=== PATIENT | female | born 1990 | race African-American/Black ===

== ENCOUNTER 2022-07-25 08:54 | Emergency (ER) | payer BC, SELFPAY ==
--- NOTE | 2022-07-25 08:56 | ED.URI ---
HPI - URI/Sore Throat General Chief Complaint: Upper Respiratory Infection Stated Complaint: SOB; productive cough; fever Time Seen by Provider: 07/25/22 09:12 Source: patient and RN notes reviewed Mode of arrival: ambulatory Limitations: no limitations History of Present Illness HPI Narrative: 32 old female presents concern for cough, headache, chest congestion, sore throat, shortness of breath upon exertion that started 3 days ago. Reports she has taken Cassie E[place] elicited complaint: cough and sore throat Related Data Home Medications Medication Instructions Recorded Confirmed cholecalciferol (vitamin D3) 50 50 mcg PO DAILY 07/25/22 07/25/22 mcg (2,000 unit) capsule meloxicam 15 mg tablet 15 mg PO DAILY 07/25/22 07/25/22 metformin 500 mg tablet 500 mg PO BID 07/25/22 07/25/22 Allergies Allergy/AdvReac Type Severity Reaction Status Date / Time megestrol Allergy Severe Dyspnea / Verified 07/25/22 09:29 SOB oxycodone Allergy Severe THROAT Verified 07/25/22 09:06 SWELLING latex Allergy Mild Rash Verified 07/25/22 09:29 Review of Systems Review of Systems: CONSTITUTIONAL: Denies malaise, chills, sweats, or fever. EYES: Denies visual changes, redness, or discharge. ENT: Reports rhinorrhea, congestion, sinus pain, otalgia. Reports sore throat. CARDIOVASCULAR: Denies chest pain, palpitations, or edema. RESPIRATORY: Reports cough, chest congestion, dyspnea. GASTROINTESTINAL: Denies abdominal pain, nausea, vomiting, diarrhea SKIN: Denies rash or itching. MUSCULOSKELETAL: Denies myalgia. NEUROLOGIC:. Reports headache. All systems reviewed & are unremarkable except as noted in HPI and below PMFSH Comments At time of signature, agree with nursing past medical, surgical, social and family history. There is no relevant family history pertinent to the presenting complaint Exam Narrative: GENERAL: Well-appearing, well-nourished, and in no acute distress. HEAD: Normocephalic EYES: PERRLA, conjunctivae clear ENT: Nares clear, turbinates edematous and erythematous. Mucous membranes moist. TM pearly rodarte with dull light reflex bilaterally; no tragal tenderness. Oropharynx not erythematous without lesions. Tonsils not enlarged and without exudate, no drooling, no hoarseness, no trismus, uvula midline. NECK: Supple. No lymphadenopathy CHEST scattered wheeze, otherwise Clear to auscultation, breath sounds equal. No wheezing, rhonchi, rales, or stridor. No respiratory distress, speaks in full sentences. HEART: Regular rate and rhythm. No murmur heard. SKIN: Warm, dry, no rash. NEURO: Alert and oriented x3. PSYCH: Normal mood and affect Course Course Emergency Course: Patient is aware of diagnosis, understands and agrees to treatment plan. Anticipatory guidance given. Patient agrees to follow-up as directed and is aware of reasons to seek care at the emergency department. Portions of this record may have been created with voice recognition software Level of Care: Express Care Visit Vital Signs Vital signs: Vital Signs Temperature 98.4 F 07/25/22 09:14 Pulse Rate 89 07/25/22 09:14 Respiratory Rate 16 07/25/22 09:14 Blood Pressure 130/77 07/25/22 09:14 Pulse Oximetry 98 07/25/22 09:14 Oxygen Delivery Room Air 07/25/22 09:14 Temperature 98.4 F 07/25/22 09:14 Pulse Rate 89 07/25/22 09:14 Respiratory Rate 16 07/25/22 09:14 Blood Pressure 130/77 07/25/22 09:14 Pulse Oximetry 98 07/25/22 09:14 Oxygen Delivery Room Air 07/25/22 09:14 Reviewed. MDM - URI/Sore Throat MDM Narrative Medical decision making narrative: Differential diagnosis considered: Mauro virus, strep pharyngitis, allergic rhinitis, upper respiratory tract infection, sinusitis, rhinosinusitis, nasopharyngitis. viral pharyngitis, otitis media, otitis externa, pneumonia, bronchitis, viral cough syndrome, viral syndrome, and influenza. Exam findings show no acute concerns or changes; patient is non-
[2022-07-25 09:14] VITALS: BP 130/77; PULSE 89; RESP 16; TEMP 36.9; O2SAT 98
== END 2022-07-25 09:40 | disposition home or self-care (01) ==
PROVIDERS: Emergency Provider Nurse Practitioner
DX: J40 Bronchitis, not specified as acute or chronic (principal); Z20.822 Contact with and (suspected) exposure to COVID-19; R73.03 Prediabetes
CPT/HCPCS: 87081; 87426; 87804; 87880; 99213; C9803; G0463

== ENCOUNTER 2022-08-04 20:21 | Emergency (ER) | payer BC, SELFPAY ==
--- NOTE | ~2022-08-04 | XR_ITS ---
EXAMINATION: XR chest 1V portable DATE: 08/04/2022 21:00 INDICATION: Cough. TECHNIQUE: A single frontal view of the chest was obtained. COMPARISON: Chest 2 views 05/26/2017 FINDINGS: There is no pneumonia, pleural effusion, or pneumothorax. The heart is normal. IMPRESSION: 1. No acute cardiopulmonary disease. Reviewed, dictated and finalized at location E.
[2022-08-04 20:24] VITALS: BP 156/95; PULSE 91; RESP 20; TEMP 36.4; O2SAT 100
--- NOTE | 2022-08-04 20:49 | ED.GENADULT ---
HPI - General Adult General Chief complaint: Upper Respiratory Infection Stated complaint: cough Time Seen by Provider: 08/04/22 20:27 Source: patient Mode of arrival: ambulatory Limitations: no limitations History of Present Illness HPI narrative: This is a 32-year-old female who presents to the ED with chief complaint of cough and URI symptoms x3 weeks. Patient states that she was seen in urgent care and given a steroid pack and albuterol. She feels like the albuterol helps but is presenting today as she just does not feel better. Reports that she still has a productive cough with yellow/green sputum. Reports postnasal drainage, sinus pressure and congestion, ear fullness. Denies fevers, chills, chest pain, abdominal pain, vomiting, urinary problems, leg swelling. Related Data Home Medications Medication Instructions Recorded Confirmed cholecalciferol (vitamin D3) 50 50 mcg PO DAILY 07/25/22 07/25/22 mcg (2,000 unit) capsule meloxicam 15 mg tablet 15 mg PO DAILY 07/25/22 07/25/22 metformin 500 mg tablet 500 mg PO BID 07/25/22 07/25/22 Allergies Allergy/AdvReac Type Severity Reaction Status Date / Time megestrol Allergy Severe Dyspnea / Verified 08/04/22 20:22 SOB oxycodone Allergy Severe THROAT Verified 08/04/22 20:22 SWELLING latex Allergy Mild Rash Verified 08/04/22 20:22 Review of Systems Review of Systems: CONSTITUTIONAL: Denies fever, chills, or sweats. EYES: Denies visual changes, redness, or discharge. ENT: See HPI CARDIOVASCULAR: Denies chest pain, palpitations, or edema. RESPIRATORY: Denies cough or dyspnea. GASTROINTESTINAL: Denies abdominal pain, nausea, vomiting, or diarrhea. GENITOURINARY: Denies dysuria or hematuria. SKIN: Denies rash or itching. MUSCULOSKELETAL: Denies back pain, joint pain, or myalgia. NEUROLOGIC: Denies headache, numbness, dizziness, or weakness. PSYCHIATRIC: Denies anxiety or depression. Exam Narrative: GENERAL: Well-appearing, well-nourished, and in no acute distress. HEAD: Normocephalic, atraumatic. EYES: PERRLA and EOMI. ENT: Nares clear, no rhinorrhea or epistaxis. Mucous membranes moist. Oropharynx without tonsillar hypertrophy exudate or other lesions. Mildly tender in the maxillary sinuses bilaterally. Postnasal drainage noted NECK: Supple. No adenopathy or masses. CHEST: No respiratory distress. Clear to auscultation. No wheezes rales or rhonchi HEART: Regular rate and rhythm. No murmur heard. Normal peripheral pulses. ABDOMEN: Soft, nontender, nondistended, normal active bowel sounds. MSK: Normal range of motion. No edema. SKIN: Warm, dry, no rash. NEURO: Alert and oriented x3. No focal deficits. PSYCH: Normal mood and affect. Course Vital Signs Vital signs: Vital Signs Temperature 97.5 F L 08/04/22 20:24 Pulse Rate 91 08/04/22 20:24 Respiratory Rate 20 08/04/22 20:24 Blood Pressure 156/95 H 08/04/22 20:24 Pulse Oximetry 100 08/04/22 20:24 Oxygen Delivery Room Air 08/04/22 20:24 Temperature 97.5 F L 08/04/22 20:24 Pulse Rate 91 08/04/22 20:24 Respiratory Rate 20 08/04/22 20:24 Blood Pressure 156/95 H 08/04/22 20:24 Pulse Oximetry 100 08/04/22 21:28 Oxygen Delivery Room Air 08/04/22 20:24 Medical Decision Making MDM Narrative Medical decision making narrative: This is a 32-year-old female who presents to the ED with chief complaint of viral URI symptoms of cough for the past 3 weeks. Was negative for strep COVID and flu at urgent care last week. Her vitals today are stable. She is afebrile. Her exam is unremarkable with normal breath sounds and satting at 100%. She is concerned for pneumonia. Chest x-ray is negative. We will give her antibiotics to cover for acute sinusitis and I instructed her that if she had a pneumonia would cover for this 2. Augmentin prescription sent. Supportive measures for home discussed. Return precautions given. Patient is understanding and agreeable
[2022-08-04 21:28] VITALS: O2SAT 100
== END 2022-08-04 21:29 | disposition home or self-care (01) ==
LOC: ANHED 21:06
PROVIDERS: Emergency Provider Physician Assistant
DX: J06.9 Acute upper respiratory infection, unspecified (principal)
CPT/HCPCS: 71045; 99283

== ENCOUNTER 2022-09-12 09:09 | Emergency (ER) | payer BC, SELFPAY ==
[2022-09-12 09:20] VITALS: BP 129/81; PULSE 73; RESP 16; TEMP 37; O2SAT 100
--- NOTE | 2022-09-12 09:28 | ED.FEMALEGU ---
HPI - Female Genitourinary General Chief complaint: Urogenital-Female Stated complaint: painful urination Time Seen by Provider: 09/12/22 09:29 Source: patient and RN notes reviewed Mode of arrival: ambulatory Limitations: no limitations History of Present Illness HPI Narrative: 32-year-old female presented for complaints of urinary frequency and burning at the end of urinary stream for about 3 days. Also reports decreased output when urinating. Positive UTI on home test strips. LMP 08/19/22. Denies concern for std. Denies hematuria, abdominal pain, flank pain, vaginal discharge, n/v/d/f/c. Related Data Home Medications Medication Instructions Recorded Confirmed cholecalciferol (vitamin D3) 50 50 mcg PO DAILY 07/25/22 07/25/22 mcg (2,000 unit) capsule meloxicam 15 mg tablet 15 mg PO DAILY 07/25/22 07/25/22 metformin 500 mg tablet 500 mg PO BID 07/25/22 07/25/22 Allergies Allergy/AdvReac Type Severity Reaction Status Date / Time megestrol Allergy Severe Dyspnea / Verified 09/12/22 09:19 SOB oxycodone Allergy Severe THROAT Verified 09/12/22 09:19 SWELLING latex Allergy Mild Rash Verified 09/12/22 09:19 Review of Systems Review of Systems: CONSTITUTIONAL: Denies body aches, fever, chills, or sweats. CARDIOVASCULAR: Denies chest pain, palpitations, or edema. RESPIRATORY: Denies cough or dyspnea. GASTROINTESTINAL: Denies abdominal pain, nausea, vomiting, or diarrhea. GENITOURINARY: Reports dysuria, frequency, denies urgency, hematuria, flank pain SKIN: Denies rash, itching, or wounds. MUSCULOSKELETAL: Denies back pain or myalgia. [facility] Past Medical History Medical History (Updated 09/12/22 @ 09:45 by Romana Urias, NONI) Diabetes Comments At time of signature, I have reviewed and agree with nursing past medical, surgical, social and family history unless otherwise noted. Please see nursing chart for further information. There is no relevant family history pertinent to the presenting complaint Exam Narrative: GENERAL: Well-appearing and in no acute distress. HEAD: Normocephalic EYES: EOMI. . ENT: Mucous membranes pink and moist. NECK: Normal AROM. Supple. CHEST: No respiratory distress. Clear to auscultation. HEART: Regular rate and rhythm. ABDOMEN: Soft, nontender, nondistended, normal active bowel sounds. No CVA tenderness MUSCULOSKELETAL: No bony tenderness. SKIN: Warm, dry, no rash. NEURO: No focal deficits. Alert and oriented x3. Gait steady. PSYCH: Normal affect. Course Course Emergency Course: Patient is aware of diagnosis, understands and agrees to treatment plan. Anticipatory guidance given. Patient agrees to follow-up as directed and is aware of reasons to seek care at the emergency department. Portions of this record may have been created with voice recognition software Level of Care: Express Care Visit Vital Signs Vital signs: Vital Signs Temperature 98.6 F 09/12/22 09:20 Pulse Rate 73 09/12/22 09:20 Respiratory Rate 16 09/12/22 09:20 Blood Pressure 129/81 09/12/22 09:20 Pulse Oximetry 100 09/12/22 09:20 Temperature 98.6 F 09/12/22 09:20 Pulse Rate 73 09/12/22 09:20 Respiratory Rate 16 09/12/22 09:20 Blood Pressure 129/81 09/12/22 09:20 Pulse Oximetry 100 09/12/22 09:20 Reviewed MDM - Female Genitourinary MDM Narrative Medical decision making narrative: Results of urine dip reviewed with patient. Will send antibiotic and fluconazole per request. Patient also stated she broke her glucometer and is a diabetic she would like to continue to check her blood glucose levels several times a day. She states her PCP is out of the office and this entire week. Discussed physical exam findings. Advised supportive measures and signs/symptoms to go to the ER. Pt is appropriate for outpt treatment and f/u. Lab Data Labs: Urine Characteristics Clear
== END 2022-09-12 09:45 | disposition home or self-care (01) ==
PROVIDERS: Emergency Provider Nurse Practitioner Family
DX: N39.0 Urinary tract infection, site not specified (principal); E11.9 Type 2 diabetes mellitus without complications; Z79.84 Long term (current) use of oral hypoglycemic drugs
CPT/HCPCS: 81003; 87077; 87086; 87186; 99213; G0463

== ENCOUNTER 2022-11-08 09:28 | Emergency (ER) | payer SELFPAY ==
--- NOTE | ~2022-11-08 | CT_ITS ---
EXAMINATION: CT cervical spine wo con DATE: 11/08/2022 15:33 INDICATION: bilateral upper extremity paresthesias TECHNIQUE: Computed tomography (CT) of the cervical spine was performed without intravenous contrast. Automated exposure control and iterative reconstruction technique were employed. The dose-length pro duct was 570.70 mGy-cm. COMPARISON: None. FINDINGS: Vertebral Body Alignment: Intact. Reversal of the normal cervical lordosis. Craniocervical and atlantoaxial alignment: Mild degenerative change. Alignment intact. Osseous structures/fracture: No evidence of a lytic or blastic process in the visualized spine. No e vidence of acute fracture. Accessory ossicle versus old fracture fragment adjacent to the right C6 davidson perior facet which may contribute to mild right C6 neural foraminal narrowing. Cervical soft tissues: The paraspinal soft tissues planes are maintained. Degenerative changes: No significant degenerative changes. No severe central canal stenosis. No sever e neural foraminal narrowing. IMPRESSION: No acute fracture or traumatic malalignment in the cervical spine. Accessory ossicle versus old fracture fragment adjacent to the right C6 superior facet which may cont ribute to mild right C6 neural foraminal narrowing. Reviewed, dictated and finalized at location K. IMPRESSION: No acute fracture or traumatic malalignment in the cervical spine. Accessory ossicle versus old fracture fragment adjacent to the right C6 superio r facet which may contribute to mild right C6 neural foraminal narrowing.
[2022-11-08 09:30] VITALS: BP 148/82; PULSE 81; RESP 16; TEMP 36.2; O2SAT 100
--- NOTE | 2022-11-08 12:45 | ED.NEUROSD ---
HPI - Neuro Symptoms/Deficit General Chief Complaint: Neuro Symptoms/Deficit Stated Complaint: bilateral arm numbness Time Seen by Provider: 11/08/22 11:57 Source: patient Limitations: no limitations History of Present Illness HPI Narrative: Patient presents to the ED for 3 weeks of tingling in her bilateral upper extremities that involves both upper arms and lower arms in addition to the 2nd-5th digits bilaterally. Denies any recent injuries, recent illness, fever, history of IV drug use, unintentional weight loss, urinary incontinence, stool incontinence, chest pain, shortness of breath, headache, dysarthria, dysphagia, history of this in the past, history of cancer, lower extremity symptoms. PAtient notes it began intermittent but seems to be more frequent over the past week. Worse at night, better upon awakening and throughout the day. Admits to associated dropping of objects with both hands over the same duration. Denies loss of hot or cold sensation. Admits to starting Ozempic for diabetes 4 weeks ago. Related Data Home Medications Medication Instructions Recorded Confirmed cholecalciferol (vitamin D3) 50 50 mcg PO DAILY 07/25/22 07/25/22 mcg (2,000 unit) capsule meloxicam 15 mg tablet 15 mg PO DAILY 07/25/22 07/25/22 metformin 500 mg tablet 500 mg PO BID 07/25/22 07/25/22 Allergies Allergy/AdvReac Type Severity Reaction Status Date / Time megestrol Allergy Severe Dyspnea / Verified 11/08/22 11:04 SOB oxycodone Allergy Severe THROAT Verified 11/08/22 11:04 SWELLING latex Allergy Mild Rash Verified 11/08/22 11:04 Review of Systems Review of Systems: A 10 system review of systems was completed on the patient and is negative except for what is stated in the HPI. Nursing and ancillary documentation was reviewed. [facility] Past Medical History Medical History (Updated 11/09/22 @ 00:01 by Background Damaria d) Diabetes Comments At time of signature, I have reviewed and agree with nursing past medical, surgical, social and family history unless otherwise noted. Please see the nursing chart for further information. There is no relevant family history pertinent to the presenting complaint. Admits to a PMHx of DM, D&C, knee surgery. LMP 1 month ago. PCP is Keyana Alva. Allergy to oxycodone. Exam Narrative: CONST: No acute distress. Well nourished. HENMT: Head is normocephalic and atraumatic. Moist mucous membranes. No posterior oropharynx erythema. EYES: No conjunctival icterus, injection, or pallor. PERRL. NECK: No meningeal signs. No midline vertebral tenderness to palpation or step offs. No carotid bruits bilaterally. Bilateral mild paracervical muscle spasms. RESP: Able to speak in full sentences. Normal respiratory effort. CTAB. CARDIO: Regular rate. Regular rhythm. 2+ DP and radial pulses bilaterally. GI: Nondistended. No tenderness to palpation. Soft. : No CVA tenderness to palpation. SKIN: No rashes or lesions noted on exposed skin. NEURO: Oriented x3. Moves all extremities. Motor strength is 5/5 throughout bilateral upper extremities. Stable gait. Sensation intact to light touch bilaterally. CN2-12 grossly intact. Speech is clear and fluent. EXTREM: No pedal edema. PSYCH: Normal affect. Course Vital Signs Vital signs: Vital Signs Temperature 97.2 F L 11/08/22 09:30 Pulse Rate 81 11/08/22 09:30 Respiratory Rate 16 11/08/22 09:30 Blood Pressure 148/82 H 11/08/22 09:30 Pulse Oximetry 100 11/08/22 09:30 Oxygen Delivery Room Air 11/08/22 09:30 Temperature 97.2 F L 11/08/22 09:30 Pulse Rate 72 11/08/22 15:53 Respiratory Rate 19 11/08/22 15:53 Blood Pressure 134/79 11/08/22 15:53 Pulse Oximetry 99 11/08/22 15:53 Oxygen Delivery Room Air 11/08/22 09:30 MDM - Neuro Symptoms/Deficit MDM Narrative Medical decision making narrative: Patient presents with the above complaint. Initial vitals are remarkable for no significant abnormalities
[2022-11-08 15:10] LABS: Glucose Point of Care 85 mg/dl (65-105)
[2022-11-08 15:53] VITALS: BP 134/79; PULSE 72; RESP 19; O2SAT 99
== END 2022-11-08 16:44 | disposition home or self-care (01) ==
PROVIDERS: Emergency Provider Student in an Organized Health Care Education/Training Program
DX: R20.2 Paresthesia of skin (principal); R20.0 Anesthesia of skin; E11.9 Type 2 diabetes mellitus without complications; Z79.84 Long term (current) use of oral hypoglycemic drugs; Z79.85 Long-term (current) use of injectable non-insulin antidiabetic drugs; R93.7 Abnormal findings on diagnostic imaging of other parts of musculoskeletal system
CPT/HCPCS: 72125; 82948; 99284

== ENCOUNTER 2022-12-21 16:50 | Outpatient (CLI) | payer BC, SELFPAY ==
--- NOTE | ~2022-12-21 | MR_ITS ---
MRI of the cervical spine Clinical History: Cervical radiculopathy, right fracture weakness Technique: Axial T2-weighted and gradient images, and sagittal T1-weighted, T2-weighted, and STIR marisela ges were acquired. Findings: There is reversal normal cervical lordosis. No fracture or subluxation identified. No suspi cious bone marrow signal abnormality seen. No significant disc bulge or herniation seen at any cervical level. No spinal canal stenosis, cord co mpression, or neural foraminal narrowing seen in the cervical spine. No epidural mass or collection i dentified. No abnormal signal seen in the spinal cord. Paravertebral soft tissues are unremarkable. Impression: Reversal of the normal cervical lordosis, otherwise unremarkable exam. Reviewed, dictated and finalized at location . Impression: Reversal of the normal cervical lordosis, otherwise unremarkable exam.
== END 2022-12-21 16:51 | disposition home or self-care (01) ==
DX: M54.2 Cervicalgia (principal); M54.12 Radiculopathy, cervical region; M62.81 Muscle weakness (generalized)
CPT/HCPCS: 72141

== ENCOUNTER 2022-12-25 09:44 | Emergency (ER) | payer BC, SELFPAY ==
[2022-12-25 09:58] VITALS: BP 116/77; PULSE 78; RESP 18; TEMP 36.6; O2SAT 100
--- NOTE | 2022-12-25 10:28 | ED.GENADULT ---
HPI - General Adult General Chief complaint: Urogenital-Female Stated complaint: urinary issue Source: patient Mode of arrival: ambulatory Limitations: no limitations History of Present Illness HPI narrative: Patient presents for evaluation of urinary symptoms for last 4 days. She reports urinary frequency, urgency, dysuria, and suprapubic pain. No fever, chills, nausea, vomiting, vaginal bleeding/discharge, or low back pain. She is sexually active with her . She has no other concerns. Related Data Home Medications Medication Instructions Recorded Confirmed meloxicam 15 mg tablet 15 mg PO DAILY 07/25/22 07/25/22 tirzepatide 2.5 mg/0.5 mL mg subcut 12/25/22 12/25/22 subcutaneous pen injector (Yazanunhipolitoro) Allergies Allergy/AdvReac Type Severity Reaction Status Date / Time megestrol Allergy Severe Dyspnea / Verified 12/25/22 09:56 SOB oxycodone Allergy Severe THROAT Verified 12/25/22 09:56 SWELLING latex Allergy Mild Rash Verified 12/25/22 09:56 Review of Systems Review of Systems: CONSTITUTIONAL: Denies fever, chills, or sweats. EYES: Denies visual changes, redness, or discharge. ENT: Denies rhinorrhea, congestion, sore throat, or otalgia. CARDIOVASCULAR: Denies chest pain, palpitations, or edema. RESPIRATORY: Denies cough or dyspnea. GASTROINTESTINAL: Denies abdominal pain, nausea, vomiting, or diarrhea. GENITOURINARY: Reports urinary frequency, urgency, dysuria and suprapubic discomfort. Denies vaginal bleeding/discharge SKIN: Denies rash or itching. MUSCULOSKELETAL: Denies back pain, joint pain, or myalgia. NEUROLOGIC: Denies headache, numbness, dizziness, or weakness. PSYCHIATRIC: Denies anxiety or depression. PENDING SALE TO [facility] Past Medical History Medical History Diabetes Surgical History Surgical History History of dilatation and curettage History of tonsillectomy Family History Family History Mother Family history non-contributory Social History Social History Substance use: never Living arrangements: with family Gender identity (if verbalized by the patient): Female Sexual Orientation (if Verbalized by the Patient): Lesbian, Danielle, or Homosexual Spiritual care concerns: No Exam Narrative: GENERAL: Well-appearing, well-nourished, and in no acute distress. HEAD: Normocephalic, atraumatic. EYES: PERRLA and EOMI. ENT: Nares clear, no rhinorrhea or epistaxis. Mucous membranes moist. Oropharynx without tonsillar hypertrophy exudate or other lesions. Bilateral TMs pearly rodarte nonbulging NECK: Supple. No adenopathy or masses. No carotid bruits or JVD CHEST: Clear to auscultation. No respiratory distress. No wheezes rales or rhonchi HEART: Regular rate and rhythm. No murmur heard. Normal peripheral pulses. ABDOMEN: Soft, nontender, nondistended, normal active bowel sounds. BACK: no CVA tenderness EXTREMITIES: Normal range of motion. No edema. SKIN: Warm, dry, no rash. NEURO: No focal deficits. Alert and oriented x3. PSYCH: Normal mood and affect. Course Course Emergency Course: This is a 32 for old female who presented for evaluation of urinary symptoms. Nitrite positive urine. Will send for culture. Start Macrobid. Increase hydration. Follow up with primary provider. Go to the ER for worsening symptoms. Patient in agreement with plan of care Level of Care: Express Care Visit Vital Signs Vital signs: Vital Signs Temperature 36.6 C 12/25/22 09:58 Pulse Rate 78 12/25/22 09:58 Respiratory Rate 18 12/25/22 09:58 Blood Pressure 116/77 12/25/22 09:58 Pulse Oximetry 100 12/25/22 09:58 Oxygen Delivery Room Air 12/25/22 09:58 Temperature 36.6 C 12/25/22 09:58 Pulse Rate 78 12/25/22 09:58
== END 2022-12-25 10:32 | disposition home or self-care (01) ==
PROVIDERS: Emergency Provider Nurse Practitioner
DX: N39.0 Urinary tract infection, site not specified (principal); E11.9 Type 2 diabetes mellitus without complications
CPT/HCPCS: 81003; 81025; 87077; 87086; 87186; 99213; G0463

== ENCOUNTER 2023-02-06 13:35 | Outpatient (CLI) | payer BC, SELFPAY ==
--- NOTE | 2023-02-06 14:15 | NEURO_ITS ---
Impression: # Diabetic complains of numbness of hands. # Bilateral Carpal Tunnel Syndrome. # Normal needle/EMG exam. Nerve Conduction Studies Anti Sensory Summary Table Stim Site NR Peak (ms) P-T Amp (?V) Site1 Site2 Delta-P (ms) Dist (cm) Elias (m/s) Left Median Anti Sensory (2-3nd Digit) Wrist 4.4 50.4 Wrist 2-3nd Digit 4.4 14.0 32 Wrist 4.8 38.6 Wrist 2-3nd Digit 4.4 14.0 32 Right Median Anti Sensory (2-3nd Digit) Wrist 4.2 39.8 Wrist 2-3nd Digit 4.2 14.0 33 Wrist 4.5 61.4 Wrist 2-3nd Digit 4.2 14.0 33 Left Radial Anti Sensory (Base 1st Digit) Wrist 2.0 27.4 Wrist Base 1st Digit 2.0 0.0 Right Radial Anti Sensory (Base 1st Digit) Wrist 2.5 17.6 Wrist Base 1st Digit 2.5 0.0 Left Ulnar Anti Sensory (5th Digit) Wrist 2.5 72.1 Wrist 5th Digit 2.5 14.0 56 Right Ulnar Anti Sensory (5th Digit) Wrist 2.2 64.5 Wrist 5th Digit 2.2 14.0 64 Motor Summary Table Stim Site NR Onset (ms) O-P Amp (mV) Site1 Site2 Delta-0 (ms) Dist (cm) Elias (m/s) Left Median Motor (Abd Poll Brev) Wrist 4.1 8.1 Elbow Wrist 5.1 31.0 61 Elbow 9.2 4.3 Right Median Motor (Abd Poll Brev) Wrist 4.5 10.4 Elbow Wrist 4.7 29.0 62 Elbow 9.2 10.1 Left Ulnar Motor (Abd Dig Minimi) Wrist 2.4 9.0 A Elbow Wrist 4.9 31.0 63 A Elbow 7.3 6.0 Right Ulnar Motor (Abd Dig Minimi) Wrist 2.5 8.1 A Elbow Wrist 4.7 29.0 62 A Elbow 7.2 7.3 F Wave Studies NR F-Lat (ms) L-R F-Lat (ms) Left Median (Mrkrs) (Abd Poll Brev) 27.47 0.23 Right Median (Mrkrs) (Abd Poll Brev) 27.70 0.23 Left Ulnar (Mrkrs) (Abd Dig Min) 27.38 0.93 Right Ulnar (Mrkrs) (Abd Dig Min) 26.45 0.93 EMG Side Muscle Nerve Root Ins Act Fibs Amp Dur Recrt Comment Right 1stDorInt Ulnar C8-T1 Nml Nml Nml Nml Nml Right Ext Indicis Radial (Post Int) C7-8 Nml Nml Nml Nml Nml Right Ext Digitorum Radial (Post Int) C7-8 Nml Nml Nml Nml Nml Right BrachioRad Radial C5-6 Nml Nml Nml Nml Nml Right PronatorTeres Median C6-7 Nml Nml Nml Nml Nml Right Abd Poll Brev Median C8-T1 Nml Nml Nml Nml Nml Left 1stDorInt Ulnar C8-T1 Nml Nml Nml Nml Nml Left Ext Indicis Radial (Post Int) C7-8 Nml Nml Nml Nml Nml Left Ext Digitorum Radial (Post Int) C7-8 Nml Nml Nml Nml Nml Left BrachioRad Radial C5-6 Nml Nml Nml Nml Nml Left PronatorTeres Median C6-7 Nml Nml Nml Nml Nml Left Abd Poll Brev Median C8-T1 Nml Nml Nml Nml Nml MTDD
== END 2023-02-06 13:36 | disposition home or self-care (01) ==
LOC: ANHNEURO 13:36
DX: G56.03 Carpal tunnel syndrome, bilateral upper limbs (principal)
CPT/HCPCS: 95886; 95911

== ENCOUNTER 2023-04-14 17:35 | Emergency (ER) | payer BC, SELFPAY ==
[2023-04-14 17:54] VITALS: BP 156/87; PULSE 87; RESP 16; TEMP 36.5; O2SAT 98
--- NOTE | 2023-04-14 18:09 | ED.URI ---
HPI - URI/Sore Throat General Chief Complaint: Ear Stated Complaint: Sore Throat/Left Ear Time Seen by Provider: 04/14/23 17:37 Source: patient Mode of arrival: ambulatory Limitations: no limitations History of Present Illness HPI Narrative: Rama is a 32-year-old female patient presenting to the clinic today with complaints of 2 day history of sore throat, left ear pain, and congestion. She reports no known fever or chills. States she is coughing up some phlegm but is clear. Denies any chest pain or shortness of breath. MD elicited complaint: sore throat and nasal congestion Related Data Home Medications Medication Instructions Recorded Confirmed meloxicam 15 mg tablet 15 mg PO DAILY 07/25/22 07/25/22 tirzepatide 2.5 mg/0.5 mL mg subcut 12/25/22 12/25/22 subcutaneous pen injector (Mounjaro) Allergies Allergy/AdvReac Type Severity Reaction Status Date / Time megestrol Allergy Severe Dyspnea / Verified 12/25/22 09:56 SOB oxycodone Allergy Severe THROAT Verified 12/25/22 09:56 SWELLING latex Allergy Mild Rash Verified 12/25/22 09:56 Review of Systems Review of Systems: Pertinent positives per HPI. Patient denies any fever, chills, rash, headache, visual changes, dizziness, shortness of breath, chest pain, palpitations, nausea, vomiting, diarrhea, constipation, abdominal pain, or any urinary issues. [facility] Past Medical History Medical History Diabetes Surgical History Surgical History History of dilatation and curettage History of tonsillectomy Family History Family History Mother Family history non-contributory Social History Social History Substance use: never Living arrangements: with family Gender identity (if verbalized by the patient): Female Sexual Orientation (if Verbalized by the Patient): Lesbian, Danielle, or Homosexual Spiritual care concerns: No Comments At the time of my signature, I reviewed and agree with the nursing past medical, surgical, social, and family history. There is no relevant family history pertinent to the patient complaint. Exam Narrative: General: Well-developed, well nourished, in no apparent distress Head: Normocephalic, atraumatic Eyes: Pupils equally round and reactive to light bilaterally, EOM intact, sclera and conjunctive clear, no discharge, lids normal Ears: TMs intact and congested, ear canals clear, no drainage, grossly hearing normal. Nose: Nares patent, clear nasal discharge, no inflammation, no sinus tenderness. Mouth: Oral pharynx red without lesions or masses, good dentition, MMM. Neck: Supple, trachea midline, no enlargement of anterior or posterior cervical nodes, no thyroid masses or goiter palpable. Cardio: Regular rate and rhythm, s1 and s2 normal, no murmur appreciated. Resp: Clear to auscultation bilaterally, no rhonchi, rales, wheezing or rubs Course Course Emergency Course: Portions of this record may have been created with voice recognition software. Level of Care: Express Care Visit Vital Signs Vital signs: Vital Signs Temperature 36.5 C 04/14/23 17:54 Pulse Rate 87 04/14/23 17:54 Respiratory Rate 16 04/14/23 17:54 Blood Pressure 156/87 H 04/14/23 17:54 Pulse Oximetry 98 04/14/23 17:54 Oxygen Delivery Room Air 04/14/23 17:54 Temperature 36.5 C 04/14/23 17:54 Pulse Rate 87 04/14/23 17:54 Respiratory Rate 16 04/14/23 17:54 Blood Pressure 156/87 H 04/14/23 17:54 Pulse Oximetry 98 04/14/23 17:54 Oxygen Delivery Room Air 04/14/23 17:58 Vital signs reviewed MDM - URI/Sore Throat MDM Narrative Medical decision making narrative: At the time of visit patient is resting comfortably on the exam table. Patient appears to be non
== END 2023-04-14 18:30 | disposition home or self-care (01) ==
PROVIDERS: Emergency Provider Nurse Practitioner Family
DX: B34.9 Viral infection, unspecified (principal); J06.9 Acute upper respiratory infection, unspecified; J02.9 Acute pharyngitis, unspecified; Z20.822 Contact with and (suspected) exposure to COVID-19; E11.9 Type 2 diabetes mellitus without complications
CPT/HCPCS: 87081; 87426; 87804; 87880; 99213; G0463

== ENCOUNTER 2023-04-17 18:17 | Emergency (ER) | payer BC, SELFPAY ==
[2023-04-17 18:28] VITALS: BP 112/82; PULSE 93; RESP 16; TEMP 36.7; O2SAT 100
--- NOTE | 2023-04-17 18:29 | ED.URI ---
HPI - URI/Sore Throat General Chief Complaint: Upper Respiratory Infection Stated Complaint: chest pain,difficulty breathing Time Seen by Provider: 04/17/23 18:29 Source: patient Mode of arrival: ambulatory Limitations: no limitations History of Present Illness HPI Narrative: 32-year-old female presents with complaint of nasal congestion, cough for 4-5 days. Sitting here 3 days ago and was negative for COVID, flu. Patient states cough not getting any better. Was told to take [id number] medications to treat symptoms. Afebrile. No chest pain or shortness of breath. All systems reviewed and negative except as noted above. Related Data Home Medications Medication Instructions Recorded Confirmed tirzepatide 2.5 mg/0.5 mL 12.5 mg subcut WEEKLY 12/25/22 04/17/23 subcutaneous pen injector (Yazanunhipolitoro) Allergies Allergy/AdvReac Type Severity Reaction Status Date / Time megestrol Allergy Severe Dyspnea / Verified 04/17/23 18:45 SOB oxycodone Allergy Severe THROAT Verified 04/17/23 18:45 SWELLING latex Allergy Mild Rash Verified 04/17/23 18:45 Review of Systems Review of Systems: CONSTITUTIONAL: Denies fever, chills, or sweats. EYES: Denies visual changes, redness, or discharge. ENT: Reports rhinorrhea, congestion, postnasal drainage, sore throat. Denies otalgia. CARDIOVASCULAR: Denies chest pain, palpitations, or edema. RESPIRATORY: reports cough. Denies dyspnea. GASTROINTESTINAL: Denies abdominal pain, nausea, vomiting, or diarrhea. GENITOURINARY: Denies dysuria or hematuria. SKIN: Denies rash or itching. MUSCULOSKELETAL: Denies back pain, joint pain, or myalgia. NEUROLOGIC: Denies headache, numbness, or weakness. PSYCHIATRIC: Denies anxiety or depression. All other systems reviewed are negative, except as documented in HPI. [facility] Past Medical History Medical History Diabetes Surgical History Surgical History History of dilatation and curettage History of tonsillectomy Family History Family History Mother Family history non-contributory Social History Social History Substance use: never Living arrangements: with family Gender identity (if verbalized by the patient): Female Sexual Orientation (if Verbalized by the Patient): Lesbian, Danielle, or Homosexual Spiritual care concerns: No Comments At time of signature, agree with nursing past medical, surgical, social and family history. There is no relevant family history pertinent to the presenting complaint. Exam Narrative: GENERAL: This is a well-nourished, well-developed patient, in no apparent distress. HEAD: normocephalic, atraumatic. EYES: PERRL. Sclera clear/white. Vision is grossly intact. EARS: External ears normal, auditory canals clear and without drainage, TMs normal without perforation. Hearing grossly intact. NOSE: External nose normal clear nasal drainage, mild erythema and swelling to nares. THROAT: Mucous membranes moist, Clear postnasal drainage without erythema swelling or exudates. NECK: Neck supple, non-tender without lymphadenopathy, masses or thyromegaly. CARDIOVASCULAR: Regular rate and rhythm without murmurs, gallops, or rubs. RESPIRATORY: Clear to auscultation. Breath sounds equal bilaterally. No wheezes, rales, or rhonchi. SKIN: warm, Dry, intact with no suspicious lesions or rash, good texture and turgor. NEURO: awake, alert, and oriented to person, place and time. There were no obvious focal neurologic abnormalities. EXTREMITIES: No joint tenderness, effusion, or edema noted. No calf tenderness. Negative Homans sign bilaterally. BACK: Nontender without deformity. No CVA tenderness. Course Course Level of Care: Express Care Visit Vital Signs Vital s
== END 2023-04-17 18:59 | disposition home or self-care (01) ==
PROVIDERS: Emergency Provider Nurse Practitioner Family
DX: J20.9 Acute bronchitis, unspecified (principal); J01.90 Acute sinusitis, unspecified; E11.9 Type 2 diabetes mellitus without complications
CPT/HCPCS: 99213; G0463

== ENCOUNTER 2023-10-16 18:34 | Emergency (ER) | payer BC, SELFPAY ==
[2023-10-16 18:45] VITALS: BP 134/69; PULSE 77; RESP 20; TEMP 36.1; O2SAT 99
--- NOTE | 2023-10-16 22:49 | ED.GENADULT ---
HPI - General Adult General Chief complaint: Skin/Abscess/Foreign Body Stated complaint: L BREAST LUMP X 1 MONTH Time Seen by Provider: 10/16/23 20:33 Source: patient Mode of arrival: ambulatory Limitations: no limitations History of Present Illness HPI narrative: this is a 33-year-old female who presents to the ED for chief complaint of painful lump to the left side of the abdomen/ ribs that she has noticed for the past 3 weeks. Denies fevers, chills, nausea, Vomiting. Denies rash. Related Data Home Medications Medication Instructions Recorded Confirmed tirzepatide 2.5 mg/0.5 mL 12.5 mg subcut WEEKLY 12/25/22 04/17/23 subcutaneous pen injector (Mounhipolitoro) Allergies Allergy/AdvReac Type Severity Reaction Status Date / Time megestrol Allergy Severe Dyspnea / Verified 04/17/23 18:45 SOB oxycodone Allergy Severe THROAT Verified 04/17/23 18:45 SWELLING latex Allergy Mild Rash Verified 04/17/23 18:45 Review of Systems Review of Systems: All systems as dictated in [facility] Past Medical History Medical History Diabetes Surgical History Surgical History History of dilatation and curettage History of tonsillectomy Family History Family History Mother Family history non-contributory Social History Social History Substance use: never Living arrangements: with family Gender identity (if verbalized by the patient): Female Sexual Orientation (if Verbalized by the Patient): Lesbian, Danielle, or Homosexual Spiritual care concerns: No Exam Narrative: GENERAL: Well-appearing, well-nourished, and in no acute distress. HEAD: Normocephalic, atraumatic. EYES: PERRLA and EOMI. ENT: Nares clear, no rhinorrhea or epistaxis. Mucous membranes moist. Oropharynx without tonsillar hypertrophy exudate or other lesions. NECK: Supple. No adenopathy or masses. CHEST: No respiratory distress. Clear to auscultation. No wheezes rales or rhonchi HEART: Regular rate and rhythm. No murmur heard. Normal peripheral pulses. ABDOMEN: Soft, nontender, nondistended, normal active bowel sounds. MSK: Normal range of motion. No edema. SKIN: Warm, dry, no rash. There is a small 1 cm fixed skin nodule to the left abdomen. Mildly tender. No surrounding erythema, fluctuance. NEURO: Alert and oriented x4. No focal deficits. PSYCH: Normal mood and affect. Bedside ultrasound reveals soft tissue formation. No focal fluid collection or inflammatory stranding detected. Course Vital Signs Vital signs: Vital Signs Temperature 97.0 F L 10/16/23 18:45 Pulse Rate 77 10/16/23 18:45 Respiratory Rate 20 10/16/23 18:45 Blood Pressure 134/69 10/16/23 18:45 Pulse Oximetry 99 10/16/23 18:45 Oxygen Delivery Room Air 10/16/23 18:45 Temperature 97.0 F L 10/16/23 18:45 Pulse Rate 72 10/16/23 23:03 Respiratory Rate 16 10/16/23 23:03 Blood Pressure 124/83 10/16/23 23:03 Pulse Oximetry 97 10/16/23 23:03 Oxygen Delivery Room Air 10/16/23 18:45 Medical Decision Making MDM Narrative Medical decision making narrative: this is a 33-year-old female who presents to the ED with chief complaint painful skin lump on the left side her abdomen. Vitals are normal. Exam shows tender nodule to the skin of the left side of the abdomen. There is no surrounding erythema. No fluctuance. Bedside ultrasound does not show any focal fluid collection. Low concern for emergent or infectious process today. Shared decision making with patient regarding workup and she is comfortable with discharge at this time. referral for surgeon given. Pt will be discharged in stable condition. Return precautions given and supportive measures discussed. Pt is understan
[2023-10-16 23:03] VITALS: BP 124/83; PULSE 72; RESP 16; O2SAT 97
== END 2023-10-16 23:05 | disposition home or self-care (01) ==
PROVIDERS: Emergency Provider Physician Assistant
DX: R19.09 Other intra-abdominal and pelvic swelling, mass and lump (principal); E11.9 Type 2 diabetes mellitus without complications
CPT/HCPCS: 99281

== ENCOUNTER 2023-11-06 00:12 | Day surgery (SDC) | payer BC, SELFPAY ==
[2023-10-30 15:15] VITALS: BMI 37.8
--- NOTE | 2023-10-30 15:17 | PC.NURSE ---
Report to the Outpatient Waiting Room, entrance under the green pavilion located off [facility], at time _11:30_ on date _11/06/23_. Planned Procedure Time: _1330__. Time changes happen often and if your time is changed the preop area will call you the afternoon before. - You and your visitor will be asked to self-screen and do not enter if you have any COVID symptoms. - A mask is optional within the hospital at this time. Patients may have clear liquids (water, carbonated beverages, clear teas, apple juice) until 3 hours prior to surgery with a maximum of 20 ounces. - No food from midnight until time of surgery - Infants may have breast milk until 4 hours before surgery, infant formula 6 hours prior to surgery. - Children will be allowed to drink immediately following surgery. If applicable, please bring a bottle or sippy cup to assist with drinking. Juice, water, soda, and popsicles are readily available. For infants on formula, please bring formula the day of surgery. Pacifiers are allowed. Take the following medications with a SIP of water the morning of surgery: _None DO NOT STOP ANY OF YOUR OTHER PRESCRIPTION MEDICATIONS PRIOR TO SURGERY ?EXCEPT THE FOLLOWING Medications to discontinue per physician __Pt is reaching out to Dr. Conway office to ask about the Tirzepatide. Pt takes for type 2 DM. Vit d 3 stop 3 days prior to surgery Date to take last dose Please no make-up, nail swedish, hairspray, perfume, deodorant, or body powder the day of surgery. No jewelry (including any body piercings) or valuables the day of surgery, leave them at home. Please take a shower or bath the night before, or the morning of, surgery with an antibacterial soap. Wear comfortable, loose fitting clothing. Children are encouraged to wear pajamas. - Jewelry must be removed prior to entering the operating room. Rings and piercings that are not removed may be cut off. - The hospital will not accept responsibility for valuables. - Please leave all valuables, including medications, at home the day of surgery. If you are going home after surgery, a licensed transport truck driver must drive you home. - NO public transportation without another adult if you receive anesthesia. - We recommend that an adult stay with you for 24 hours following discharge. - We also recommend that you do not drive, make important decision, drink alcoholic beverages, or take any drugs that were not prescribed by your health care provider for at least 24 hours after your discharge time. For Pediatric surgeries, we recommend two adults accompany the child home. Follow any additional instructions given to you from your surgeon. If you or anyone in your household have experienced Covid symptoms in the past week, please notify your surgeon or the nurse liaison at the phone number below for possible testing. Telephone instructions given to _[place]__and asked if any additional questions and then verbalized understanding. Patient advised to call surgeon office or pre surgery nurse liaison [phone] if any additional questions.
--- NOTE | 2023-11-06 09:25 | WPDHPUPDATE1 ---
History and Physical Update Update Date/Time: 11/06/23 09:25 History and Physical has been reviewed, including an updated exam of the patient. There are NO changes in the patient's condition. Risks, benefits, and alternatives have been discussed and questions answered. Patient agrees to proceed with procedure.
[2023-11-06 11:17] VITALS: BP 114/61; PULSE 84; RESP 18; TEMP 36.1; O2SAT 99
[2023-11-06 12:03] LABS: Glucose Point of Care 92 mg/dl (65-105)
[2023-11-06 12:13] LABS: BEDSIDEPREGUCG Negative
--- NOTE | 2023-11-06 12:50 | WPDANESEPPF ---
Anes - Initial Pre Proc Eval Procedure: Operation Date: 11/06/23 13:30 Proposed Procedures p Excisional Biopsy Left Upper Abdominal Subcutaneous Mass - Avis Nunez MD Date/Time: 11/06/23 12:50 Surgeon: Avis Nunez MD Pre Op Diagnosis: Lt Upper Abdominal Subcutaneous Mass 3 by 2 cm Patient Data Age: 33 Gender: F Height: 1.7 m Weight: 109.7 kg Last Vital Signs Temp 36.1 C L 11/06/23 11:17 Pulse 84 11/06/23 11:17 Resp 18 11/06/23 11:17 BP 114/61 11/06/23 11:17 Pulse Ox 99 11/06/23 11:17 O2 Del Method Room Air 11/06/23 11:17 Allergies Allergy/AdvReac Type Severity Reaction Status Date / Time megestrol Allergy Severe Dyspnea / Verified 11/06/23 12:06 SOB oxycodone Allergy Severe THROAT Verified 11/06/23 12:06 SWELLING latex Allergy Mild Rash Verified 11/06/23 12:06 Home Medications Medication Instructions Recorded Confirmed Type tirzepatide 2.5 mg/0.5 mL 12.5 mg subcut WEEKLY 12/25/22 11/06/23 History subcutaneous pen injector (Mounjaro) benzonatate 200 mg capsule 200 mg PO TID PRN cough #20 caps 04/17/23 11/06/23 Rx fluticasone propionate 50 1 spray intranasal BID #16 grams 04/17/23 11/06/23 Rx mcg/actuation nasal spray,suspension (Flonase Allergy Relief) loratadine 10 mg chewable tablet 10 mg PO DAILY #30 tabs 04/17/23 11/06/23 Rx (Claritin) atorvastatin 10 mg tablet 10 mg PO HS 10/30/23 11/06/23 History cholecalciferol (vitamin D3) 50 50 mcg PO DAILY 10/30/23 11/06/23 History mcg (2,000 unit) capsule Laboratory Tests 11/06/23 11/06/23 11:56 12:10 POC Capillary Glucose 92 mg/dl (65-105) POC Urine HCG, Qual Negative POC Ur Preg QC Yes Patient hx anesthesia problems: post op nausea/vomiting Family hx anesthesia problems: none Results Review: All pre-operative results and documents have been reviewed as part of the pre-operative evaluation. [facility], [facility] Past Medical History Medical History (Updated 11/06/23 @ 12:54 by Jerald Jean DO) Asthma Diabetes Hyperlipidemia Surgical History Surgical History History of dilatation and curettage History of tonsillectomy Family History Family History Mother Family history non-contributory Social History Social History Smoking status: Never smoker Alcohol intake: current Alcohol use details: Socially- not even once aweek Substance use: never Living arrangements: with family Gender identity (if verbalized by the patient): Female Sexual Orientation (if Verbalized by the Patient): Lesbian, Danielle, or Homosexual Spiritual care concerns: No Anes - Eval Final PreProcedure Day of Procedure 11/06/23 12:50 Patient weight: obese Heart: regular rate and rhythm Lungs: clear to auscultation Airway: Mallampati scale class II Neurological: alert and oriented Last oral intake: >/= 8 hours ASA classification: II Emergent: no Anesthetic plan: proceed Anesthesia type and monitoring: general GIVS and standard monitoring Results Review: All pre-operative results and documents have been reviewed as part of the pre-operative evaluation. Informed Consent: The patient's anesthetic plan and its attendant risks and benefits were discussed with the patient/family/POA. Questions were solicited and answers provided to the satisfaction of the patient/family/POA.
[2023-11-06] MEDS: ceFAZolin 2 GM/D5W 50 ML 2 GM/50 ML BAG IVPB (13:18)
[2023-11-06] MEDS: BUPIVACAINE/EPINEPHRINE 0.5% 10 ML VIAL 20 ML INFILTRATE (13:18)
--- NOTE | 2023-11-06 13:47 | W.PM.PROC2 ---
Procedure Note - Detailed Date of Procedure 11/06/23 Pre-op Diagnosis Lt Upper Abdominal Subcutaneous Mass Post-op Diagnosis Same Procedure Performed Excisional biopsy left upper abdominal subcutaneous mass x2 measuring 3 x 3 cm and 3 x 2 cm Surgeon Avis Nunez MD Anesthesia General and Local Indications 33-year-old female with left upper abdominal subcutaneous mass slowly enlarging size Findings Left upper quadrant abdominal subcutaneous mass x2 Description of Procedure The patient was taken to the operating room and placed in the supine position. After adequate induction of general anesthesia, the patient was prepped and draped in the normal sterile fashion. A time-out was then done to verify the patient's identity, as well as the procedure being performed. Began by identifying the mass in the left upper quadrant. This was noted to be a hard, nodular mass in the subcutaneous tissue. I then localized the area and around this area in the left upper quadrant. I then made an incision in the dermis with a 15 blade scalpel over the mass. Upon getting through the dermis and into the subcutaneous tissue, I was able to identify a calcified mass. I was able to excise this mass full which measured 3 x 3 cm. A 2nd mass was noted inferiorly and this was subsequently excised as well. This mass measured 3 x 2 cm. Both masses will be sent to pathology for further review. No other pathology was noted in the area. I then copiously irrigated the cavity. Further local anesthetic was placed. The subcutaneous tissue was closed with 3-0 Vicryl suture. The skin was closed with 4-0 Monocryl subcuticular suture. Dermabond was placed on the wound. The patient tolerated the procedure well and was extubated postoperative. She will be sent to the recovery room in stable condition. Estimated Blood Loss 5 Pathology Yes Complications No immediate complications Condition Stable Disposition PACU [facility] Billing Surgery - Charge Forward: Surgery Billing
[2023-11-06 13:59] VITALS: BP 100/43; PULSE 91; RESP 12; O2SAT 94
[2023-11-06 14:25] VITALS: BP 103/72; PULSE 87; RESP 20
[2023-11-06] MEDS: ONDANSETRON INJ 4 MG/2 ML VIAL IV PUSH (14:47)
[2023-11-06 14:55] VITALS: BP 108/66; PULSE 68; RESP 20
[2023-11-06 15:25] VITALS: BP 112/74; PULSE 65; RESP 20
[2023-11-06 15:55] VITALS: BP 110/70; PULSE 67; RESP 20
[2023-11-06] MEDS: LACTATED RINGERS 1,000 ML 30 ML IV CONT (16:05)
== END 2023-11-06 16:10 | disposition home or self-care (01) ==
PROVIDERS: Visit Provider Surgery
PROC: (CPT 22901; principal; 2023-11-06 13:30)
DX: K65.4 Sclerosing mesenteritis (principal); E11.9 Type 2 diabetes mellitus without complications; E78.5 Hyperlipidemia, unspecified; J45.909 Unspecified asthma, uncomplicated; E66.9 Obesity, unspecified; Z68.37 Body mass index [BMI] 37.0-37.9, adult; Z79.85 Long-term (current) use of injectable non-insulin antidiabetic drugs
CPT/HCPCS: 22901; 82948; 88304; J0690; J1100; J2250; J2405; J2704; J3010; J7120

== ENCOUNTER 2023-12-08 19:06 | Emergency (ER) | payer BC, SELFPAY ==
--- NOTE | 2023-12-08 19:25 | ED.ABDPAIN ---
HPI - Abdominal Pain General Chief Complaint: Urogenital-Female Stated Complaint: UTI Time Seen by Provider: 12/08/23 19:25 Source: patient, RN notes reviewed and old records reviewed Mode of arrival: ambulatory Limitations: no limitations History of Present Illness HPI narrative: Patient presents with complaints of 2-3 days of urinary frequency and burning. She denies any fever, chills, sweats. She denies any abdominal pain or back pain. She does report that she gets yeast infections when she is treated with antibiotics. She is requesting a prescription for this if she needs an antibiotic today. She has no other concerns or complaints at this time. Related Data Home Medications Medication Instructions Recorded Confirmed tirzepatide 2.5 mg/0.5 mL 12.5 mg subcut WEEKLY 12/25/22 12/08/23 subcutaneous pen injector (Mounjaro) albuterol sulfate 90 mcg/actuation 2 puff inhalation QID PRN SOB 12/08/23 12/08/23 aerosol inhaler loratadine 10 mg tablet (Claritin) 10 mg PO DAILY 12/08/23 12/08/23 Allergies Allergy/AdvReac Type Severity Reaction Status Date / Time megestrol Allergy Severe Dyspnea / Verified 12/08/23 19:21 SOB oxycodone Allergy Severe THROAT Verified 12/08/23 19:21 SWELLING latex Allergy Mild Rash Verified 12/08/23 19:21 Review of Systems Review of Systems: All systems reviewed & are unremarkable except as noted in HPI and below Constitutional: Constitutional: Reports no additional constitutional complaints ENT: Reports system reviewed and no additional complaints, except as documented Cardiovascular: Cardiovascular: Reports no additional cardiovascular complaints Respiratory: Respiratory: Reports no additional respiratory complaints Gastrointestinal: Gastrointestinal: Reports no additional gastrointestinal complaints Genitourinary: Genitourinary: Reports as per HPI, Reports dysuria and Reports urinary urgency [facility] Past Medical History Medical History (Updated 12/09/23 @ 00:01 by Kevin Mccartney) Asthma Diabetes Hyperlipidemia Surgical History Surgical History (Updated 11/28/23 @ 13:35 by Anusha Almanza) History of dilatation and curettage History of tonsillectomy Hx of excision of mass Excisional biopsy left upper abdominal sub q mass x2 11/06/[address] Nunez Family History Family History Mother Family history non-contributory Social History Social History (Updated 11/28/23 @ 13:33 by Anusha Almanza) Smoking status: Never smoker Alcohol intake: current Alcohol use details: Socially- not even once aweek Substance use: never Current Housing: Decline to Answer Concerned About Future Housing: Decline to Answer Difficulty Paying Gas/Electric Bills: Decline to Answer Difficulty Paying for Meds: Decline to Answer Currently Unemployed: Decline to Answer Education: Decline to Answer Difficulty w/ Childcare or Family Care: Decline to Answer Living arrangements: with family Gender identity (if verbalized by the patient): Female Sexual Orientation (if Verbalized by the Patient): Lesbian, Danielle, or Homosexual Spiritual care concerns: No Exam Const: General: cooperative, no acute distress, alert and awake Orientation/consciousness: oriented to person, oriented to place and oriented to time HENMT: Head: normal to inspection Resp: Effort & Inspection: normal respiratory effort and able to speak in complete sentences Auscultation: clear to auscultation bilaterally, no crackles, no rales, no rhonchi and no wheezes Cardio: Palpation: normal PMI Rate: regular rate Rhythm: regular rhythm Heart sounds: S1 normal heart sound present and S2 normal heart sound present : General: Yes bladder normal to palpation and Yes no CVA tenderness Neuro: General: oriented to person, oriented to place and oriented to time Cranial nerves: Yes CN's II-XII intact bilaterally Psych: Appearance: gr
[2023-12-08 19:31] VITALS: BP 126/78; PULSE 74; RESP 19; TEMP 36.6; O2SAT 100
[2023-12-11 14:24] LABS: EDUAAPPEAR Cloudy; EDUABILI Negative (Negative); EDUABLOOD 2+ (Negative); EDUACOLOR1 Yellow; EDUAGLUCOSE Negative (Negative); EDUAKETONE Negative (Negative); EDUALEUKO 3+ (Negative); EDUANITRATE Positive (Negative); EDUAPROTEIN 1+ (Negative); EDUAUROBILI 0.2
== END 2023-12-08 19:55 | disposition home or self-care (01) ==
PROVIDERS: Emergency Provider Nurse Practitioner Family
DX: N39.0 Urinary tract infection, site not specified (principal); B96.20 Unspecified Escherichia coli [E. coli] as the cause of diseases classified elsewhere; J45.909 Unspecified asthma, uncomplicated; E11.9 Type 2 diabetes mellitus without complications; E78.5 Hyperlipidemia, unspecified
CPT/HCPCS: 81003; 87077; 87086; 87088; 87186; 99213; G0463

== ENCOUNTER 2024-10-28 16:06 | Emergency (ER) | payer OTHER, SELFPAY ==
[2024-10-28 16:17] VITALS: BP 132/68; PULSE 58; RESP 20; TEMP 36.9; O2SAT 100
[2024-10-28 16:29] LABS: EDUAAPPEAR Cloudy; EDUABILI Negative (Negative); EDUABLOOD Trace (Negative); EDUACOLOR1 Yellow; EDUAGLUCOSE Negative (Negative); EDUAKETONE 1+ (Negative); EDUALEUKO Negative (Negative); EDUANITRATE Negative (Negative); EDUAPH 6.0; EDUAPROTEIN 1+ (Negative); EDUASPGRAVITY 1.030; EDUAUROBILI 1.0
--- NOTE | 2024-10-28 16:46 | ED_ITS ---
HPI - Female Genitourinary General Chief complaint: Urogenital-Female Stated complaint: urinary irritation Time Seen by Provider: 10/28/24 16:46 Source: patient and RN notes reviewed Mode of arrival: ambulatory Limitations: no limitations History of Present Illness HPI Narrative: 34-year-old female presented for complaint of burning at then end of urination, frequency and urgency. Onset 2 days. Denies hematuria, nausea, vomiting, abdominal pain, flank pain, constipation, diarrhea, fevers or chills. LMP 8/7. Denies concern for or STD. Related Data Home Medications ?Medication ?Instructions ?Recorded ?Confirmed ?Last Taken ?Type tirzepatide 2.5 mg/0.5 mL 12.5 mg subcut WEEKLY 12/25/22 12/08/23 10/23/23 History subcutaneous pen injector (Mounjaro) albuterol sulfate 90 mcg/actuation 2 puff inhalation QID PRN SOB 12/08/23 12/08/23 Unknown History aerosol inhaler omeprazole 40 mg capsule,delayed mg 10/28/24 Unknown History release Allergies Allergy/AdvReac Type Severity Reaction Status Date / Time megestrol Allergy Severe Dyspnea / Verified 10/28/24 16:34 SOB oxycodone Allergy Severe THROAT Verified 10/28/24 16:34 SWELLING latex Allergy Mild Rash Verified 10/28/24 16:34 Review of Systems Review of Systems: CONSTITUTIONAL: Denies body aches, fever, chills, or sweats. CARDIOVASCULAR: Denies chest pain, palpitations, or edema. RESPIRATORY: Denies cough or dyspnea. GASTROINTESTINAL: Denies abdominal pain, nausea, vomiting, or diarrhea. GENITOURINARY: Reports dysuria, frequency, denies hematuria, flank pain, discharge SKIN: Denies rash, itching, or wounds. MUSCULOSKELETAL: Denies back pain or myalgia. [facility] Past Medical History Medical History (Updated 10/28/24 @ 16:51 by Romana Echevarria APRN) Hyperlipidemia Asthma Diabetes Surgical History Surgical History (Updated 11/28/23 @ 13:35 by Anusha Almanza) Hx of excision of mass Excisional biopsy left upper abdominal sub q mass x2 11/06/[address] Nunez History of dilatation and curettage History of tonsillectomy Family History Family History Mother Family history non-contributory Social History Social History (Updated 11/28/23 @ 13:33 by Anusha Almanza) Smoking status: Never smoker Alcohol intake: current Alcohol use details: Socially- not even once aweek Substance use: never Current Housing: Decline to Answer Concerned About Future Housing: Decline to Answer Difficulty Paying Gas/Electric Bills: Decline to Answer Difficulty Paying for Meds: Decline to Answer Currently Unemployed: Decline to Answer Education: Decline to Answer Difficulty w/ Childcare or Family Care: Decline to Answer Living arrangements: with family Gender identity (if verbalized by the patient): Female Sexual Orientation (if Verbalized by the Patient): Lesbian, Danielle, or Homosexual Spiritual care concerns: No Comments At time of signature, I have reviewed and agree with nursing past medical, surgical, social and family history unless otherwise noted. Please see nursing chart for further information. There is no relevant family history pertinent to the presenting complaint Exam Narrative: GENERAL: Well-appearing and in no acute distress. ENT: Mucous membranes pink and moist. NECK: Normal AROM. Supple. CHEST: No respiratory distress. Clear to auscultation. HEART: Regular rate and rhythm. ABDOMEN: Soft, nontender, nondistended, normal active bowel sounds. No CVA tenderness SKIN: Warm, dry, no rash. NEURO: No focal deficits. Alert and oriented x3. Gait steady. PSYCH: Normal affect. Course Course Emergency Course: Patient is aware of diagnosis, understands and agrees to treatment plan. Anticipatory guidance given. Patient agrees to follow-up as directed and is aware of reasons to seek care at the emergency department. Portions of this record may have been created with voice recognition software Level of Care: Express Care Visit Vital Signs Vital signs: Vital Signs Temperature 98.5 F 10/28/24 16:17 Pulse Rate 58 L 10/28/24 16:17 Respiratory Rate 20 10/28/24 16:17 Blood Pressure 132/68 10/28/24 16:17 Pulse Oximetry 100 10/28/24 16:17 Oxygen Delivery Room Air 10/28/24 16:17 Temperature 98.5 F 10/28/24 16:17 Pulse Rate 58 L 10/28/24 16:17 Respiratory Rate 20 10/28/24 16:17 Blood Pressure 132/68 10/28/24 16:17 Pulse Oximetry 100 10/28/24 16:17 Oxygen Delivery Room Air 10/28/24 16:17 Reviewed MDM - Female Genitourinary MDM Narrative Medical decision making narrative: Discussed physical exam findings And urine dip. Will culture. Declines STD testing today. Advised supportive measures and signs/symptoms to go to the ER. Pt is appropriate for outpt treatment and f/u. Differential Diagnosis Differential diagnosis: Likely urinary tract infection, vaginitis, cystitis and other Lab Data Labs: Lab Results 10/28/24 Range/Units 16:20 POC Urine Color Yellow POC Urine Clarity Cloudy POC Urine pH 6.0 POC Ur Specif [place] 1.030 POC Urine Protein 1+ (Negative) POC Ur Glucose (UA) Negative (Negative) POC Urine Ketones 1+ (Negative) POC Urine Blood Trace (Negative) POC Urine Nitrite Negative (Negative) POC Urine Bilirubin Negative (Negative) POC Urine Urobilinogen 1.0 POC U Leukocyte Esteras Negative (Negative) Discharge Plan Discharge Clinical Impression: Dysuria Patient Disposition: Home Condition: Stable Instructions: Antibiotic Form, Urinary Tract Infection in Women (ED) Additional Instructions: Take the antibiotic as prescribed The urine will be sent of for a culture to identify what type of bacteria is causing your infection. If the culture shows that the antibiotic will not get rid of your infection, you will be notified and a new antibiotic will be called in for you. Increase water intake follow up with your PCP, call to schedule an appointment. Go to the ER for any worsening symptoms or concerns Patient Language: Arabic Prescriptions: New nitrofurantoin monohyd/m-cryst [Macrobid] 100 mg capsule 100 mg PO Q12H 5 Days Qty: 10 0RF Rx Instructions: must administer with a meal/food No Action albuterol sulfate 90 mcg/actuation Hfa Aerosol Inhaler 2 puff INHALATION QID PRN (Reason: SOB) omeprazole 40 mg capsule,delayed release(DR/EC) Mounjaro 2.5 mg/0.5 mL pen injector 12.5 mg SUBCUT WEEKLY Follow-up/Referrals: Teddy,Ernesto [Other] Time of Disposition: 16:51
== END 2024-10-28 16:55 | disposition home or self-care (01) ==
PROVIDERS: Emergency Provider Nurse Practitioner Family
DX: R30.0 Dysuria (principal); E11.9 Type 2 diabetes mellitus without complications; J45.909 Unspecified asthma, uncomplicated; E78.5 Hyperlipidemia, unspecified
CPT/HCPCS: 81003; 99213; G0463

== ENCOUNTER 2024-12-16 17:09 | Emergency (ER) | payer OTHER, SELFPAY ==
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
--- OUTSIDE RECORDS SUMMARY | 2024-12-16 17:12 | XMS_ITS | Encounter Summary ---
Author Organization [facility] Address [address] [place] [address] Care Team Providers Care Terminal Clerk Name Role Phone Ernesto Espinal MD Primary Care Provider [phone] Encounter Details Date Type Department Care Team (Late st Contact Info) Description 10/18/1999 Outpatient Historical [facility] Pritesh Crowley MD NO ADDRESS ON FILE Screening for other and unspecified respiratory condition (Primary Dx) Social History Tobacco Use Types Packs/Day Years Used Date Smoking Tobacco: Never Assessed Comments Unknown Sex and Gender Information Value Date Recorded Sex Assigned at Not on file Legal Sex Female 4:08 AM HISTOLOGY AIDE Gender Identity Not on file Sexual Orientation Not on file documented as of this encounter Plan of Treatment Upcoming Encounters Date Type Department Care Team (Late st Contact Info) Description 02/05/2025 8:00 AM HISTOLOGY AIDE Office Visit [facility] Bariatrics and General Surgery at the [facility] Medicine [address] [place] [address] Jenn Veras MD [address] [place] [phone] 02/10/2025 1:00 PM HISTOLOGY AIDE Video Visit [facility] Bariatrics and General Surgery at the [facility] Medicine [address] [place] [address] [place] [address] documented as of this encounter Visit Diagnoses Diagnosis Screening for other and unspecified respiratory condition- Primary documented in this encounter Additional Health Concerns Infection Onset Date Last Indicated Resolved Time R/O COVID-19 10/20/2021 10/20/2021 10/20/2021 11:5 1 PM CDT R/O Respiratory 01/04/2024 01/04/2024 01/04/2024 5 :16 PM CDT COVID-19 01/04/2024 01/04/2024 01/24/2024 1:16 AM HISTOLOGY AIDE documented as of this encounter Care Teams Terminal Clerk Relationship Specialty [place] [address] [address] PCP - General Family Practice 05/16/24 documented as of this encounter
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
--- OUTSIDE RECORDS SUMMARY | 2024-12-16 17:12 | XMS_ITS | Encounter Summary ---
Author Organization [facility] Address [address] [place] [address] Care Team Providers Care Tile Setter Name Role Phone Ernesto Espinal MD Primary Care Provider [phone] Encounter Details Date Type Department Care Team (Latest Contact Info) Description 10/29/2024 Results Follow-Up [facility] Bariatrics and General Surgery at the [facility] Medicine [address] [place] [address] Raine Camacho, MINNA COMPREHENSIVE METABOLIC PANEL, IRON, TIBC, AND PERCENT SATURATION, LIPID PANEL, Additional followed-up results: 2 Social History Tobacco Use Types Packs/Day Years [...] on file Legal Sex Female 4:08 AM FLARE BREAKER Gender Identity Not on file Sexual Orientation Not on file 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 Not on file Not on file documented as of this encounter Plan of Treatment Upcoming Encounters Date Type Department Care Team (Late Contact Info) Description 02/05/2025 8:00 AM FLARE BREAKER Office Visit [facility] Bariatrics and General Surgery at the [facility] [address] [place] [address] Jenn Veras MD [address] [place] [address] 02/10/2025 1:00 PM FLARE BREAKER Video Visit [facility] Bariatrics and General Surgery at the [facility] [address] [place] [address] [place], [place] [id number] documented as of this encounter Visit Diagnoses Not on filedocumented in this encounter Care Teams Tile Setter Relationship Specialty Start [place] [address] [facility] [address] [place] [address] PCP - General Family Practice 05/16/24 documented as of this encounter
--- OUTSIDE RECORDS SUMMARY | 2024-12-16 17:13 | XMS_ITS | Encounter Summary ---
Author Organization [facility] Health Address [address] [place] [address] Care Team Providers Care Rivet Thrower Name Role Phone Cirstela Meneses DO Primary Care Provider [phone] Andreas Shrestha DO Primary Care Provider Cristela Meneses DO Primary Care Provider [phone] Donna Guerra MD Primary Care Provider [phone] Keyana Dougherty MD Primary Care Provider [phone] Keyana Dougherty MD Primary Care Provider [phone] Keyana Dougherty MD Unavailable [phone] Encounter Details Date Type Department Care Team (Late st Contact Info) Description 04/14/2011 [facility] [address] [facility] [address] [place] [id number] Social History Tobacco Use Types Packs/Day Years Used Date Smoking Tobacco: Never Smokeless Tobacco: Never Alcohol Use Standard Drinks/Week Comments Yes 1.7 (1 standard drink = 0.6 oz p ure alcohol) social Comments No Sex and Gender Information Value Date Recorded Sex Assigned at Female 03/15/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 Legal Sex Female 6:54 AM 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 Gender Identity Female 03/15/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 Sexual Orientation Lesbian 03/15/2022 6: 46 AM 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 documented as of this encounter Plan of Treatment Upcoming Encounters Date Type Department Care Team (Late st Contact Info) Description 01/07/2025 10:50 AM CDT Appointment [facility] Health Imaging Services - MRI [address] [facility] [address] [place] [address] [place] [address] [facility] [address] [place] [phone] documented as of this encounter Visit Diagnoses Not on filedocumented in this encounter Care Teams Rivet Thrower Relationship Specialty [place] [address] [facility] [address] [place] [address] PCP - General 04/12/11 03/16/12 [place] [address] [facility] [address] [place] [address] PCP - General Internal Medicine 03/17/12 03/19/12 [place] [address] [facility] [address] [place] [address] PCP - General 03/20/12 06/03/12 Donna Guerra MD [address] [place] [phone] PCP - General Family Medicine 04/09/19 06/25/20 Keyana Dougherty MD [facility] [id number] [address] PCP - General 06/26/20 08/17/20 Keyana Dougherty MD [address] [address] PCP - General 08/18/20 Keyana Dougherty MD [address] [address] 08/18/20 documented as of this encounter
--- OUTSIDE RECORDS SUMMARY | 2024-12-16 17:13 | XMS_ITS | Clinical Summary ---
Author Organization [facility] d[facility] Address [address] [place] [address] Care Team Providers Care Certified Performance Technologist Name Role Phone Ernesto Espinal MD Primary Care Provider [phone] Allergies Active Allergy Reactions Criticality Noted Date Comments Latex Unknown 01/13/2014 Megestrol Hives High 09/17/2018 Nsaids (Non-Steroidal Anti-Inflammatory Drug) Other (See Comments) High 08/06/2024 S/P Bariatric Surgery Oxycodone Nausea and Vomiting Medium 05/20/2009 Medications albuterol (PROVENTIL,RAMIREZ TOLIN) 90 mcg/Actuation Inhalation Aero Take 2 Puffs by inhalation every 6 hours as needed for Other (See Comment) (wheezing). 1 Inhaler None 02/03/20 10 Active albuterol HFA 90 mcg inhaler Take 2 Puffs by inhalation every 6 hours as needed for Wheezing or Shortness of Breath. 8.5 Gram None 01/23/20 18 Active inhalational spacing device Spacer Spacer with MDI 1 Each 03/08/20 19 Active ondansetron (ZOFRAN ODT) 4 mg Tablet, Rapid Dissolve Dissolve 1 tablet on top of tongue, then swallow with saliva every 6 hours as needed for Nausea/vomiting. 40 Tablet 08/02/2024 1:00 PM CDT 08/03/19 25 Active Blood-Glucose MeterIndicatio ns:Type 2 diabetes mellitus without complication, without long-term current use of insulin Use to check blood sugar twice per day 1 Each 1 08/30/2024 7:34 PM CDT 08/28/19 25 Active blood sugar diagnostic (Blood Glucose Test) StripIndicatio ns:Type 2 diabetes mellitus without complication, without long-term current use of insulin Use to check blood sugar twice per day 100 Each 08/30/2024 7:34 PM CDT 08/28/19 25 Active lancets 30 gaugeIndicatio ns:Type 2 diabetes mellitus without complication, without long-term current use of insulin Use to check blood sugar twice per day 100 Each 08/30/2024 7:34 PM CDT 08/28/19 25 Active omeprazole (PriLOSEC) 40 mg Capsule, Delayed Release(E.C.) Take 1 Capsule (40 mg) by mouth 2 times daily. 180 Capsule 1 10/05/19 25 Active pantoprazole (Protonix) 20 mg Tablet, Delayed Release (E.C.) Take 2 Tablets (40 mg) by mouth 2 times daily. 90 Tablet 4 10/30/2024 6:05 PM CDT 10/10/19 25 Active tirzepatide (Mounjaro) 2.5 mg/0.5 mL Pen InjectorIndica tions:Type 2 diabetes mellitus without complication, without long-term current use of insulin Inject 0.5 mL (2.5 mg) by subcutaneous injection every 7 days. 2 mL 1 11/29/19 25 Active albuterol HFA 90 mcg inhaler Take 2 Puffs by inhalation every 6 hours as needed for Wheezing or Shortness of Breath. 8.5 Gram None 03/08/20 19 025 Discontinu ed(Duplica te Therapy) sucralfate (CARAFATE) 1 gram tablet Take 1 Tablet (1 Gram) by mouth 4 times daily before meals and at bedtime. *Please dissolve tablet in 30 cc of water and drink dose down.* 360 Tablet 10/10/19 25 025 Discontinu ed(Alterna te therapy prescribed ) Active Problems Problem Noted Date Diagnosed Date Intractable headache 11/14/2020 Transient hypertension 11/14/2020 DM (diabetes mellitus), type 2 11/14/2020 Elevated systolic blood pres sure reading without diagnosis of hypertension Encounters Date Type Department Care Team Description 11/28/2024 9:30 AM CDT Office Visit [facility] Teresa Maradiaga [address] [facility] [address] [place] [address] Ernesto Espinal MD Immunization due (Primary Dx); Type 2 diabetes mellitus without complication, without long-term current use of insulin ([facility]); Palpitations; Hyperlipidemia, unspecified hyperlipidemia type 11/28/2024 Results Follow-Up [facility] Emergency Clinical Decision Unit [address] [place] [address] Corina Mercado FNP HOLTER MONITOR 11/27/2024 External Device Data STL ABSTRACTION Provider, Abstract 11/26/2024 5:44 AM CDT - 11/26/2024 11:59 PM CDT Hospital Encounter [facility] Non Invasive Cardiology [address] [place] [address] Ernesto Espinal MD Discharge Disposition: Home or Self Care 11/26/2024 External Device Data STL ABSTRACTION Provider, Abstract 11/26/2024 External Device Data STL ABSTRACTION Provider, Abstract 11/21/2024 7:24 AM CDT - 11/21/2024 11:59 PM CDT Hospital Encounter [facility] Non Invasive Cardiology [address] [place] [address] Tigre Wilson MD Discharge Disposition: Home or Self Care 11/21/2024 4:04 AM CDT - 11/21/2024 7:02 AM CDT Emergency [facility] Emergency Department [address] [place] [address] Tigre Wilson MD Palpitations (Primary Dx) Discharge Disposition: Home or Self Care 11/21/2024 Telephone [facility] Family Medicine Teresa Maradiaga [address] [facility] [address] [place] [address] Ernesto Espinal MD Patient Communication 11/20/2024 Travel 11/18/2024 1:15 PM CDT Video Visit [facility] Bariatrics and General Surgery at the [facility] [address] [facility] [address] [place] [address] Intestinal malabsorption following gastrectomy (Primary Dx); H/O gastric sleeve 11/13/2024 External Device Data STL ABSTRACTION Provider, Abstract 11/12/2024 External Device Data STL ABSTRACTION Provider, Abstract 11/08/2024 8:00 AM CDT Office Visit [facility] Bariatrics and General Surgery at the [address] [place] [address] Jenn Veras MD H/O gastric sleeve (Primary Dx); Gastroesophageal reflux disease, unspecified whether esophagitis present 11/08/2024 Abstract [facility] Bariatrics and General Surgery at the [address] [place] [address] Raine Camacho RN 11/06/2024 External Device Data STL ABSTRACTION Provider, Abstract 11/05/2024 External Device Data STL ABSTRACTION Provider, Abstract 11/05/2024 [facility] [address] [address] [facility] [address] [place] [address] Ernesto Espinal MD 11/05/2024 Results Follow-Up [facility] Bariatrics and General Surgery at the [address] [place] [address] Raine Camacho RN HEMOGLOBIN A1C 10/29/2024 Orders Only [facility] Bariatrics and General Surgery at the [address] [place] [address] Raine Camacho RN H/O gastric sleeve (Primary Dx); Gastroesophageal reflux disease, unspecified whether esophagitis present 10/29/2024 Results Follow-Up [facility] Bariatrics and General Surgery at the [address] [place] [address] Raine Camacho RN COMPREHENSIVE METABOLIC PANEL, IRON, TIBC, AND PERCENT SATURATION, LIPID PANEL, Additional followed-up results: 2 10/23/2024 Refill [facility] [address] [place] [address] Ernesto Espinal MD 10/16/2024 External Device Data STL ABSTRACTION Provider, Abstract 10/09/2024 9:00 AM CDT Office Visit [facility] Bariatrics and General Surgery at the [address] [place] [address] Jenn Veras MD Gastroesophageal reflux disease, unspecified whether esophagitis present (Primary Dx); H/O gastric sleeve 10/09/2024 Orders Only [facility] Bariatrics and General Surgery at the [address] [place] [address] Romana Lester RN 10/08/2024 External Device Data STL ABSTRACTION Provider, Abstract 10/08/2024 External Device Data STL ABSTRACTION Provider, Abstract 10/04/2024 Orders Only [facility] Bariatrics and General Surgery at the [address] [place] [address] Raine Camacho, MINNA 10/04/2024 Telephone [facility] Bariatrics and General Surgery at the [address] [place] [address] Raine Camacho, RN Nurse Navigation 10/04/2024 Orders Only [facility] Bariatrics and General Surgery at the [address] [place] [phone] Raine Camacho, RN from Last 3 Months Immunizations Immunization Administration Dates Next Due (ADACEL/BOOSTRIX)(10 YR UP) TDAP VACCINE, 0.5ML, IM 01/04/2013 (HAVRIX/VAQTA)(12 [place]-18 YRS) HEPATITIS A VACCINE 0.5 ML PED/ADOL 2 DOSE, IM 12/12/2005,08/23/2004 (MENACTRA)(9 [place]-55 YR) MENIN GOCOCCAL POLYSACCHARIDE A, C, Y AND W-135 DIPTHERIA TOXOID CONJUGATE VACCINE, (PF), 0.5ML, IM 12/12/2005 INFLUENZA VACCINE TRIVALENT SPLIT VIRUS, (6 MOS UP), 0.5ML (PF), IM 11/28/2024 Influenza Seasonal Unspecified Formulation IM Family History Medical History Relation Name Comments Diabetes Father Vivek Suarez Hypertension Father Vivek Suarez Breast Cancer Maternal Grandmother Sade Hunt Cancer Maternal Grandmother Sade Hunt Diabetes Maternal Grandmother Sade Hunt Hypertension Maternal Grandmother Sade Hunt Breast Cancer Mother Alexandra Suarez Cancer Mother Alexandra Suarez Diabetes Mother Alexandra Suarez Hypertension Mother Alexandra Suarez Lung Cancer Mother Alexandra Suarez Cancer Paternal Grandfather Bartolome Hunt Diabetes Paternal Grandfather Bartolome Hunt Hypertension Paternal Grandfather Bartolome Hunt Breast Cancer Paternal Grandmother Ana Maria Suarez Relation Name Status Comments Brother 1 Alive Brother 2 Alive Brother 3 Alive Brother 4 Alive Father Vivek Suarez Alive Maternal Grandmother Sade Hunt Alive Mother Alexandra Suarez Alive Paternal Grandfather Bartolome Hunt Alive Paternal Grandmother Ana Maria Suarez Alive Sister Alive Social History Tobacco Use Types Packs/Day Years Used Date Smoking Tobacco: Never Smokeless Tobacco: Never Tobacco Cessation:Counseling Given: No Alcohol Use Standard Drinks/Week Comments Not Currently 1 (1 standard drink = 0.6 oz pure alcohol) Stated drinks approx 1x/month Feeling Safe Answer Date Recorded Are you in a relationship wi th someone who hurts you emotionally and/or physically? 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 Not on file Not on file Last Filed Vital Signs Vital Sign Reading Time Taken Comments Blood Pressure 124/76 11/28/2024 9:12 AM CDT Pulse 75 11/28/2024 9:12 AM CDT Temperature 36.7 C (98 F) 11/28/2024 9:12 AM CDT Respiratory Rate 16 11/28/2024 9:12 AM CDT Oxygen Saturation 96% 11/28/2024 9:12 AM CDT Inhaled Oxygen Concentration - - Weight 84.8 kg (187 lb) 11/28/2024 9:12 AM CDT Height 170.2 cm (5' 7) 11/28/2024 9:12 AM CDT Body Mass Index 29.29 11/28/2024 9:12 AM CDT Plan of Treatment Upcoming Encounters Date Type Department Care Team (Late st Contact Info) Description 02/05/2025 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 Office Visit [facility] Bariatrics and General Surgery at the [facility] Medicine [address] [place] [address] Jenn Veras MD [address] [place] [address] 02/10/2025 1:00 PM 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 Video Visit [facility] Bariatrics and General Surgery at the [facility] Medicine [address] [place] [address] [place] [address] Health Maintenance Due Date Last Done Comments DIABETES ANNUAL RETINAL EXAM 2006 DIABETES MICROALBUMIN ANNUAL SCREEN 2006 HEPATITIS B VACCINES (1 of 3 - 19+ 3-dose series) 05/26/2007 HPV/Cotest (21-29) 2009 HPV VACCINES (1 - 3-dose SCD M series) 05/26/2015 CERVICAL CANCER SCREENING 2018 HPV/Cotest (30-65) 2018 PAP SMEAR 2018 DTAP/TDAP/TD VACCINES (2 - T d or Tdap) 01/04/2023 01/04/2013 DIABETES HBA1C Q 6 MONTHS 05/07/20252024, 07/15/2024, 04/08/2024, Additional history exists DIABETES ANNUAL FOOT EXAM 05/16/2025 05/16/2024 LDL CHOLESTEROL ANNUAL 10/28/2025 , 07/15/2024, 04/08/2024 DIABETES: A1C (Auto Order) 11/04/202511/04, 07/15/2024, 04/08/2024, Additional history exists Preventative Visit- Commercial Completed 0 05/16/2024, 04/17/2024, 08/07/2020, Additional history exists INFLUENZA VACCINE Completed 11/28/2024, 11/27/2023 Medical Devices Implanted Type Area Hotel Assistant Manager Device Identifier Shelf Expiration Date Model / Serial / Lot Chief Crna Ligaclip Endo Rotate Multi Clip 10mm [id number] - [id number] Implanted:Qty : 1 on 08/01/2024 by Jenn Veras MD at [facility] Clip N/A: Abdomen [employer]- [employer] 04/12/2029 [id number] / / [id number] Chief Crna Ligaclip Endo Rotate Multi Clip 10mm Er320 - [id number] Implanted:Qty : 1 on 08/01/2024 by Jenn Veras MD at [facility] Clip N/A: Abdomen [employer]- [employer] 05/10/2028 [id number] / / [id number] Clip Endo Resolution 360 235cm [id number] - [id number] Implanted:Qty : 1 on 09/06/2024 by Jenn Veras MD at [facility] Clip N/A: Stomach [employer] [id number] 05/28/2027 [id number] / / [id number] Hemostat Lisa Ah Powder 3gm [id number] - [id number] Implanted:Qty : 1 on 08/01/2024 by Jenn Veras MD at [facility] Hemostatic N/A: Abdomen BARD DAVOL [id number] 01/07/2029 [id number] / / [id number] Hemostat Lisa Ah Powder 3gm [id number] - [id number] Implanted:Qty : 1 on 08/01/2024 by Jenn Veras MD at [facility] Hemostatic N/A: Abdomen BARD DAVOL [id number] 01/07/2029 [id number] / / [id number] Procedures Procedure Name Priority Date/Time Associated Diagnosis Comments HOLTER MONITOR Routine 11/28/2024 4:18 AM CDT Palpitations POC , URINE Stat 11/21/2024 5:29 AM CDT XR CHEST PA AND LATERAL 2 VW Stat 11/21/2024 4:45 AM CDT COMPREHENSIVE METABOLIC PANEL Stat 11/21/2024 1:07 AM CDT CBC WITH DIFFERENTIAL Stat 11/21/2024 1:07 AM CDT EKG 12-LEAD Stat 11/20/2024 9:59 PM CDT HEMOGLOBIN A1C Routine 11/04/2024 9:42 AM CDT H/O gastric sleeve Gastroesophageal reflux disease, unspecified whether esophagitis present ZINC LEVEL Routine 10/28/2024 3:54 PM CDT Bariatric surgery status Intestinal malabsorption following gastrectomy VITAMIN D 25 HYDROXY Routine 10/28/2024 3:54 PM CDT Bariatric surgery status Intestinal malabsorption following gastrectomy VITAMIN B12 AND FOLATE Routine 10/28/2024 3:54 PM CDT Bariatric surgery status Intestinal malabsorption following gastrectomy VITAMIN B1 LEVEL Routine 10/28/2024 3:54 PM CDT Bariatric surgery status Intestinal malabsorption following gastrectomy LIPID PANEL Routine 10/28/2024 3:54 PM CDT Bariatric surgery status Intestinal malabsorption following gastrectomy IRON, TIBC, AND PERCENT SATURATION Routine 10/28/2024 3:54 PM CDT Bariatric surgery status Intestinal malabsorption following gastrectomy COMPREHENSIVE METABOLIC PANEL Routine 10/28/2024 3:54 PM CDT Bariatric surgery status Intestinal malabsorption following gastrectomy from Last 3 Months Results * HOLTER MONITOR (11/28/2024 4:18 AM CDT) 11/28/2024 4:18 AM CDT Narrative INTERFACE SYSTEM - 11/28/2024 10:50 AM CDT [address] [address] Test Date: 2024-11-28 Pat Name: [facility] Department: Room: Gender: F Form Tamping Machine Operator: : 1990 Requested By: TIGRE WILSON Order Number: [id number] Reading MD: Jovany Chen Interpretive Statements Patient monitored for 3d 11h, analyzable time was 3d 11h starting on 11/21/2024 07:53 am. Primary rhythm was Sinus Rhythm. Average heart rate was 96 bpm, Minimum heart rate was 76 bpm on Day :14:07 am, Max heart rate was 142 bpm on Day :17:10 pm SVE(s): [place] was less than 0.01 %, 2 total SVE(s) PVC(s): [place] was less than 0.01 %, 5 total PVC(s), 1 disparate morphologies There was no atrial fibrillation/flutter, SVT, pauses, AV block greater than first degree, or ventricular arrhythmias. There were no patient reported events / symptoms. Electronically Signed On 11-28-2024 10:50:54 CDT by Jovany Chen Procedure Note Jovany Chen MD - 11/28/[address] [address] Test Date: 2024-11-28 Pat Name: [facility] Department: Room: Gender: F Form Tamping Machine Operator: : 1990 Requested By: TIGRE WILSON Order Number: [id number] Marv ELLSWORTH: Jovany Chen Interpretive Statements Patient monitored for 3d 11h, analyzable time was 3d 11h starting on 11/21/2024 07:53 am. Primary rhythm was Sinus Rhythm. Average heart rate was 96 bpm, Minimumheart rate was 76 bpm on Day :14:07 am, Max heart rate was 142 bpm on Day:17:10 pm SVE(s): [place] was less than 0.01 %, 2 total SVE(s) PVC(s): [place] was less than 0.01 %, 5 total PVC(s), 1 disparatemorphologies There was no atrial fibrillation/flutter, SVT, pauses, AV block greaterthan first degree, or ventricular arrhythmias. There were no patient reported events / symptoms. Electronically Signed On 11-28-2024 10:50:54 CDT by Jovany Chen Tigre Wilson MD CARDIAC SERVICES ORDERABLES Final Result INTERFACE SYSTEM Refer to clinic/hospital department * POC , URINE (11/21/2024 5:29 AM CDT) HCG QUAL URINE Negative Negative 11/21/2024 5:29 AM CDT [facility] [facility] Urine 11/21/2024 5:29 AM CDT 11/21/2024 5:36 AM CDT Narrative [facility] - 11/21/2024 5:29 AM CDT Positive : Result is greater than or equal to 25 mIU/mL Negative: Result is less than 25 mIU/mL Invalid: Result is borderline or indeterminate,send to lab for serum test methodology. Tigre Wilson MD POINT OF CARE TESTING Final Result Performing Organization Address [facility] de Phone Number [facility]# [id number] [address] [place] [address] * XR CHEST PA AND LATERAL 2 VW (11/21/2024 4:45 AM CDT) Anatomical Region Laterality Modality Chest Computed Radiogr aphy 11/21/2024 6:02 AM CDT Impressions 11/21/2024 7:15 AM CDT IMPRESSION: 1. No acute pulmonary process. DICTATION LOCATION: [address] 11/21/2024 7:15 AM CDT EXAMINATION: XR CHEST PA AND LATERAL 2 VW HISTORY: Palpitations COMPARISON: Chest radiograph performed 07/15/2024 FINDINGS: The lungs are clear of acute focal consolidation. No pleural effusion or pneumothorax identified. The heart size is normal. No acute osseous injury is identified. Surgical clips are noted within the left upper quadrant of the abdomen. INCIDENTAL FINDINGS: None. Procedure Note Lalo Andres MD - 11/21/2024 EXAMINATION: XR CHEST PA AND LATERAL 2 VW HISTORY: Palpitations COMPARISON: Chest radiograph performed 07/15/2024 FINDINGS: The lungs are clear of acute focal consolidation. No pleural effusion or pneumothorax identified. The heart size is normal. No acute osseous injury is identified. Surgical clips are noted within the left upper quadrant of the abdomen. INCIDENTAL FINDINGS: None. IMPRESSION: 1. No acute pulmonary process. DICTATION LOCATION: Location [address] [place] [address] Tigre Wilson MD DIAGNOSTIC IMAGING ORDERABL ES Final Result * (ABNORMAL) CBC WITH DIFFERENTIAL (11/21/2024 1:07 AM CDT) Pathologist [facility] WBC 5.0 4.0 - 9.8 K/uL 11/21/2024 1:21 AM [employer] [facility] RBC 4.98(H) 3.90 - 4.90 M/uL 11/21/2024 1:21 AM CDT [facility] HEMOGLOBIN 13.5 11.8 - 14.8 g/dL 11/21/2024 1:21 AM CDT [facility] HEMATOCRIT 42.4 35.5 - 44.0 % 11/21/2024 1:21 AM CDT [facility] - [facility] MCV 85.1 82.0 - 99.0 fL 11/21/2024 1:21 AM CDT [facility] MCH 27.1(L) 27.2 - 32.6 pg 11/21/2024 1:21 AM CDT [facility] - [facility] MCHC 31.8 31.5 - 35.5 g/dL 11/21/2024 1:21 AM [employer] [facility] RDW 13.4 11.5 - 14.5 % 11/21/2024 1:21 AM CDT [facility] - . [facility] RDW-STDEV 42.2 37.1 - 48.7 fL 11/21/2024 1:21 AM T [employer] [facility] - [facility] PLATELETS 307 140 - 350 K/uL 11/21/2024 1:21 AM [employer] [facility] - [facility] MPV 10.4 9.3 - 12.4 fL 11/21/2024 1:21 AM T [employer] - [facility] NEUTROPHILS 54 % 11/21/2024 1:21 AM T [employer] - [facility] LYMPHOCYTES 38 % 11/21/2024 1:21 AM T [employer] - [facility] MONOCYTES 7 % 11/21/2024 1:21 AM T [employer] [facility] - [facility] EOSINOPHILS 0 % 11/21/2024 1:21 AM [employer] [facility] - [facility] BASOPHILS 2 % 11/21/2024 1:21 AM [employer] [facility] - [facility] IMMATURE GRANULOCYTES 0 % 11/21/2024 1:21 AM T [facility] - [facility] NEUTROPHIL ABSOLUTE 2.70 1.90 - 7.00 K/uL 11/21/2024 1:21 AM T [employer] - [facility] LYMPHOCYTE ABSOLUTE 1.88 0.70 - 4.50 K/uL 11/21/2024 1:21 AM [employer] [facility] - [facility] MONOCYTE ABSOLUTE 0.34 0.10 - 1.30 K/uL 11/21/2024 1:21 AM [employer] [facility] - [facility] EOSINOPHIL ABSOLUTE 0.01 0.00 - 0.70 K/uL 11/21/2024 1:21 AM [employer] [facility]AT[facility] - [facility] BASOPHILS ABSOLUTE 0.08 0.00 - 0.20 K/uL 11/21/2024 1:21 AM [employer] SERVICES - [facility] IMMATURE GRANULOCYTES ABSOLUTE 0.01 0.00 - 0.03 K/uL 11/21/2024 1:21 AM [employer] [facility] - [facility] Blood Venipuncture / Unknown 11/21/2024 1:07 AM CDT 11/21/2024 1:15 AM CDT Westley Camargo MD HEMATOLOGY ORDERABLES Final R esult [facility] - [facility]# [id number] [address] [place] [address] * COMPREHENSIVE METABOLIC PANEL (11/21/2024 1:07 AM CDT) Only the most recent of2 resultswithin the time period is included. SODIUM 139 136 - 145 mmol/L 11/21/2024 1:36 AM CDT [employer] - [facility] POTASSIUM 3.8 3.5 - 5.0 mmol/L 11/21/2024 1:36 AM CDT [employer] [facility] - [facility] CHLORIDE 102 98 - 107 mmol/L 11/21/2024 1:36 AM CDT [employer] - [facility] CO2 23 22 - 29 mmol/L 11/21/2024 1:36 AM CDT [employer] [facility] - [facility] CALCIUM 9.6 8.6 - 10.2 mg/dL 11/21/2024 1:36 AM CDT [facility] - [facility] BUN 16 6 - 20 mg/dL 11/21/2024 1:36 AM CDT [employer] [facility] - [facility] CREATININE 0.86 0.51 - 0.95 mg/dL 11/21/2024 1:36 AM CDT [employer] [facility] - [facility] GLUCOSE 96 74 - 99 mg/dL 11/21/2024 1:36 AM CDT [facility] - [facility] TOTAL PROTEIN 8.1 6.7 - 8.6 g/dL 11/21/2024 1:36 AM CDT [facility] - [facility] ALBUMIN 4.2 3.5 - 5.2 g/dL 11/21/2024 1:36 AM CDT [employer] - [facility] BILIRUBIN TOTAL 0.6 0.0 - 1.2 mg/dL 11/21/2024 1:36 AM CDT [employer] - [facility] ALKALINE PHOSPHATASE 62 35 - 104 U/L 11/21/2024 1:36 AM CDT [employer] [facility] - [facility] AST 18 <33 U/L 11/21/2024 1:36 AM CDT [facility] ALT 6 <34 U/L 11/21/2024 1:36 AM CDT [facility] GFR >60 >=60 mL/min/1.7 3 sq meter 11/21/2024 1:36 AM CDT [facility] Comment:eGFR calculated with 2020 CKD-EPI equation. Vegetarian diet, extremely high or low muscle mass, and may affect results. Cystatin C with Glomerular Filtration Rate is a suitable alternative for these patients. ANION GAP 14 8 - 16 mmol/L 11/21/2024 1:36 AM T [facility] Blood Venipuncture / Unknown 11/21/2024 1:07 AM CDT 11/21/2024 1:15 AM CDT Narrative [facility] - 11/21/2024 1:36 AM CDT Samples containing indocyanine green cause interferences on Total and/or Direct Bilirubin and must not be measured. us Westley Camargo MD CHEMISTRY ORDERABLES Final Re sult [facility]# [id number] [address] [place] [address] * EKG 12-LEAD (11/20/2024 9:59 PM CDT) 11/20/2024 9:59 PM CDT [employer]305 INTERFACE SYSTEM - 11/21/2024 6:46 PM CDT [facility] [address] [place] [address] Test Date: 2024-11-20 Pat Name: RAMA BLAND Department: 37 Room: Gender: Female Form Tamping Machine Operator: [id number] : 1990 Requested By: Order Number: [id number] Marv MD: Dudley Rose Measurements Intervals [place] Rate: 87 P: 66 SD: 142 QRS: 48 QRSD: 85 T: 51 QT: 363 QTc: 437 Interpretive Statements Sinus rhythm Baseline wander in lead(s) II,V2,V3,V4,V5,V6 Electronically Signed On 11-21-2024 18:46:04 CDT by Dudley Rose Procedure Note Dudley Rose MD - 11/21/2024 [facility] [address] , [place] [address] Test Date: 2024-11-20 Pat Name: RAMA BLAND Department: 37 Room: Gender: Female Form Tamping Machine Operator: [id number] : 1990 Requested By: Order Number: [id number] Reading MD: Dudley Rose Measurements Intervals [place] Rate: 87 P: 66 SD: 142 QRS: 48 QRSD: 85 T: 51 QT: 363 QTc: 437 Interpretive Statements Sinus rhythm Baseline wander in lead(s) II,V2,V3,V4,V5,V6 Electronically Signed On 11-21-2024 18:46:04 CDT by Dudley Rose us Tigre Wilson MD ECG ORDERABLES Final Resul t INTERFACE SYSTEM Refer to clinic/hospital department * (ABNORMAL) HEMOGLOBIN A1C (11/04/2024 9:42 AM CDT) HEMOGLOBIN A1C 5.9(H) <5.7 % of total Hgb [facility] Comment: For someone without known diabetes, a hemoglobin A1c value between 5.7% and 6.4% is consistent with prediabetes and should be confirmed with a follow-up test. For someone with known diabetes, a value <7% indicates that their diabetes is well controlled. A1c targets should be individualized based on duration of diabetes, age, comorbid conditions, and other considerations. This assay result is consistent with an increased risk of diabetes. Currently, no consensus exists regarding use of hemoglobin A1c for diagnosis of diabetes for children. ESTIMATED AVERAGE GLUCOSE (MG/DL) 123 mg/dL [facility] ESTIMATED AVERAGE GLUCOSE (MMOL/L) 6.8 mmol/L [facility] Comment: Test Performed at: [facility] [address] [place] [address] Lucita Almaraz Blood 11/04/2024 9:42 AM CDT 11/04/2024 9:43 AM CDT Jenn Veras MD CHEMISTRY ORDERABLES Betina l Result Performing Organization Address City/[facility]/ZIP Code Phone Number [facility] [phone] [facility] [address] [place] [address] * ZINC LEVEL (10/28/2024 3:54 PM CDT) ZINC LEVEL 89 60 - 130 mcg/dL [facility] Comment: (Note) This test was developed and its analytical performance characteristics have been determined by [facility]. It has not been cleared or approved by the FDA. This assay has been validated pursuant to the CLIA regulations and is used for clinical purposes. [facility] [address] [place] [address],[address] [place] [address] Lore Lockwood MD, PhD FASTING:YES FASTING: YES Test Performed at: [facility] [address] [place] [address], [address] [place] [phone] Lore Lockwood MD,PhD Blood 10/28/2024 3:54 PM CDT 10/28/2024 3:55 PM CDT Result [facility] Kourtney CHAMPAGNE CHEMISTRY ORDERABLES Betina l Result Performing Organization Address City/State/ZIP [facility] Phone Number [facility] [phone] [facility] [address] [place] [address], [address] [place] [phone] * VITAMIN B12 AND FOLATE (10/28/2024 3:54 PM CDT) VITAMIN B12 489 200 - 1100 pg/mL [facility] FOLATE, SERUM 6.3 ng/mL [facility] Comment: Reference Range Low: <3.4 Borderline: 3.4-5.4 Normal: >5.4 Test Performed at: [facility] [address] [place] [address] Lucita Kovacs MD Blood 10/28/2024 3:54 PM CDT 10/28/2024 3:55 PM CDT Kourtney CHAMPAGNE CHEMISTRY ORDERABLES Betina l Result Performing Organization Address [facility] Co de Phone Number [facility] [phone] [facility] [address] [place] [address] * IRON, TIBC, AND PERCENT SATURATION (10/28/2024 3:54 PM CDT) IRON 109 40 - 190 mcg/dL [facility] TIBC 349 250 - 450 mcg/dL (calc) [facility] IRON % SATURATION 31 16 - 45 % (calc) [facility] Comment: FASTING:YES FASTING: YES Test Performed at: [facility] [id number] [place] [phone] Lucita Kovacs MD Blood 10/28/2024 3:54 PM CDT 10/28/2024 3:55 PM CDT Kourtney CHAMPAGNE CHEMISTRY ORDERABLES Betina l Result Performing Organization Address [facility] Co de Phone Number [facility] [phone] [facility] [address] * VITAMIN D 25 HYDROXY (10/28/2024 3:54 PM CDT) VITAMIN D, 25 OH, TOTAL 85 30 - 100 ng/mL [facility] Comment: Vitamin D Status 25-OH Vitamin D: Deficiency: <20 ng/mL Insufficiency: 20 - 29 ng/mL Optimal: > or = 30 ng/mL For 25-OH Vitamin D testing on patients on D2-supplementation and patients for whom quantitation of D2 and D3 fractions is required, the QuestAssureD(TM) 25-OH VIT D, (D2,D3), LC/MS/MS is recommended: order code 14240 (patients >2yrs). See Note 1 Note 1 For additional information, please refer to http://education.Ecor[employer]atura[employer].Ener[employer]/faq/DKE538 (This link is being provided for informational/ educational purposes only.) FASTING:YES FASTING: YES Test Performed at: [facility] [address] [place] [address] Lucita Kovacs MD Blood 10/28/2024 3:54 PM CDT 10/28/2024 3:55 PM CDT Kourtney CHAMPAGNE CHEMISTRY ORDERABLES Betina l Result Performing Organization Address City/[facility]/ZIP Co de Phone Number [facility] [phone] [facility] [address] [place] [address] * VITAMIN B1 LEVEL (10/28/2024 3:54 PM CDT) [facility] VITAMIN B1 87 78 - 185 nmol/L [facility] ([facility]) Comment: (Note) Vitamin supplementation within 24 hours prior to blood draw may affect the accuracy of the results. This test was developed and its analytical performance characteristics have been determined by [facility]. It has not been cleared or approved by FDA. This assay has been validated pursuant to the CLIA regulations and is used for clinical purposes. [facility] [address] [place] [address],[address] [place] [id number] Lore Lockwood MD, PhD FASTING:YES FASTING: YES Test Performed at: [facility] [address] [place] [address], [address] [place] [phone] Lore Lockwood MD,PhD Blood 10/28/2024 3:54 PM CDT 10/28/2024 3:55 PM CDT Kourtney CHAMPAGNE CHEMISTRY ORDERABLES Betina l Result [facility] [phone] [facility] [address] [place] [address], [address] [place] [phone] * (ABNORMAL) LIPID PANEL (10/28/2024 3:54 PM CDT) CHOLESTEROL 164 <200 mg/dL [facility] HDL 48(L) > OR = 50 mg/dL [facility] TRIGLYCERIDE 64 <150 mg/dL [facility] LDL CALCULATED 101(H) mg/dL (calc) [facility] Comment: Reference range: <100 Desirable range <100 mg/dL for primary prevention; <70 mg/dL for patients with CHD or diabetic patients with > or = 2 CHD risk factors. LDL-C is now calculated using the Rishabh calculation, which is a validated novel method providing better accuracy than the Friedewald equation in the estimation of LDL-C. Riley SS et al. ELIZBAET. 2013;310(19): 1999-3276 (http://education.Teja [employer]/faq/BPS054) CHOL/HDL RATIO 3.4 <5.0 (calc) [facility] NON-HDL CHOLESTEROL 116 <130 mg/dL (calc) [facility] Comment: For patients with diabetes plus 1 major ASCVD risk factor, treating to a non-HDL-C goal of <100 mg/dL (LDL-C of <70 mg/dL) is considered a therapeutic option. Test Performed at: [facility] [address] [address] [address] [facility] Blood 10/28/2024 3:54 PM CDT 10/28/2024 3:55 PM CDT Kourtney CHAMPAGNE CHEMISTRY ORDERABLES Betina l Result [facility] [phone] [place] [address] [address] [phone] from Last 3 Months Insurance [employer] Member Subscriber Plan / Payer (Ef fective 2024-Present) Name:Rama Bland Relation to Subscriber:Self Name:Rama Bland Subscriber ID:Not on file Payer ID:Not on file Type:Not on file Address: [place] [employer] [place] PLANS (INTERNAL) [facility] Internal Plans Advance Directives For more information, please contact: [phone] * Full Code (Latest Code Status on File) Date Activated Date Inactivated Comments 09/06/2024 11:24 AM 09/07/2024 3:51 PM * Full Code Date Activated Date Inactivated Comments 08/01/2024 11:20 AM 08/02/2024 3:08 PM * Full Code Date Activated Date Inactivated Comments 08/01/2024 5:38 AM 08/01/2024 11:20 AM * Full Code Date Activated Date Inactivated Comments 11/14/2020 8:06 PM 11/15/2020 1:55 PM Care Teams Certified Performance Technologist Relationship Specialty [place] [id number] [address] PCP - General Family Practice 05/16/24
--- OUTSIDE RECORDS SUMMARY | 2024-12-16 17:13 | XMS_ITS | Clinical Summary ---
Author Organization [facility] Address [address] [place] [address] Care Team Providers Care Senior Software Engineer Analytics Name Role Phone Unavailable Primary Care Provider Unavailabl e Social History Tobacco Use Types Packs/Day Years Used Date Smoking Tobacco: Never Assessed Comments Unknown Sex and Gender Information Value Date Recorded Sex Assigned at Not on file Legal Sex Female 6:17 PM CDT Gender Identity Not on file Sexual Orientation Not on file Plan of Treatment Health Maintenance Due Date Last Done Comments Cervical Cancer Screening Pa p Smear (Age 30 to 64) Every 3 Years 1988 Annual Physical 05/26/1991 Hepatitis C 2006 DTaP, Tdap and Td Vaccines ( 1 - Tdap) 05/26/2007 Hepatitis B Vaccines (1 of 3 - 19+ 3-dose series) 05/26/2007 HPV Vaccines (1 - 3-dose SCD M series) 05/26/2015 Cervical Cancer Screening Pa p with HPV Testing (Age 30 to 64) Every 5 Years 2018 Cervical Cancer Screening with HPV 2018 COVID-19 Vaccine (2023-2 5 season) 2024 Meningococcal B Vaccine Aged Out No l onger eligible based on patient's age to complete this topic Meningococcal Vaccine Aged Out No delisa carlos eligible based on patient's age to complete this topic Pneumococcal Vaccine: Pediat rics (0 to 5 Years) and At-Risk Patients (6 to 49 Years) Aged Out No longer eligible b ased on patient's age to complete this topic RSV Immunizations Under 20 Months Aged Out No longer eligible based on patient's age to complete this topic
--- OUTSIDE RECORDS SUMMARY | 2024-12-16 17:13 | XMS_ITS | Encounter Summary ---
Author Organization [facility] Address [address] [place] [address] Care Team Providers Care Dining Room Cashier Name Role Phone Ernesto Espinal MD Primary Care Provider [phone] Encounter Details Date Type Department Care Team (Latest Contact Info) Description 06/07/[address] [facility] ARVIND Crowley, Pritesh Olivo MD NO ADDRESS ON FILE COUGH (Primary Dx) Social History Tobacco Use Types Packs/Day Years Used Date Smoking Tobacco: Never Assessed Comments Unknown Sex and Gender Information Value Date Recorded Sex Assigned at Not on file Legal Sex Female 4:08 AM CABLE TELEVISION INSTALLER Gender Identity Not on file Sexual Orientation Not on file documented as of this encounter Plan of Treatment Upcoming Encounters Date Type Department Care Team (Late st Contact Info) Description 02/05/2025 8:00 AM CABLE TELEVISION INSTALLER Office Visit [facility] Bariatrics and General Surgery at the [facility] Medicine [address] [place] [address] Jenn Veras MD [address] [place] [address] 02/10/2025 1:00 PM CABLE TELEVISION INSTALLER Video Visit [facility] Bariatrics and General Surgery at the [facility] Medicine [address] [place] [phone] Nikole Dailey RD [address] [place] [address] documented as of this encounter Visit Diagnoses Diagnosis Cough- Primary documented in this encounter Additional Health Concerns Infection Onset Date Last Indicated Resolved Time R/O COVID-19 10/20/2021 10/20/2021 10/20/2021 11:5 1 PM CDT R/O Respiratory 01/04/2024 01/04/2024 01/04/2024 5 :16 PM CDT COVID-19 01/04/2024 01/04/2024 01/24/2024 1:16 AM CABLE TELEVISION INSTALLER documented as of this encounter Care Teams Dining Room Cashier Relationship Specialty Start [place] [id number] [address] PCP - General Family Practice 05/16/24 documented as of this encounter
--- OUTSIDE RECORDS SUMMARY | 2024-12-16 17:13 | XMS_ITS | Encounter Summary ---
Author Organization [facility] Address [address] [place] [address] Care Team Providers Care Veterinarian Name Role Phone Ernesto Espinal MD Primary Care Provider [phone] Encounter Details Date Type Department Care Team (Late st Contact Info) Description 07/14/2002 Emergency [facility] Davion Atkinson MD [address] [place] [address] Er, Authorized P NO ADDRESS ON FILE SPRAIN OF NECK (Primary Dx) Social History Tobacco Use Types Packs/Day Years Used Date Smoking Tobacco: Never Assessed Comments Unknown Sex and Gender Information Value Date Recorded Sex Assigned at Not on file Legal Sex Female 4:08 AM TUBE ROLLER Gender Identity Not on file Sexual Orientation Not on file documented as of this encounter Plan of Treatment Upcoming Encounters Date Type Department Care Team (Late Contact Info) Description 02/05/2025 8:00 AM TUBE ROLLER Office Visit [facility] Bariatrics and General Surgery at the [facility] Medicine [address] [place] [address] Jenn Veras MD [address] [place] [address] 02/10/2025 1:00 PM TUBE ROLLER Video Visit [facility] Bariatrics and General Surgery at the [facility] Medicine [address] [place] [address] Nikole Horne, RD [address] [place] [address] documented as of this encounter Visit Diagnoses Diagnosis Sprain of neck- Primary documented in this encounter Additional Health Concerns Infection Onset Date Last Indicated Resolved Time R/O COVID-19 10/20/2021 10/20/2021 10/20/2021 11:5 1 PM CDT R/O Respiratory 01/04/2024 01/04/2024 01/04/2024 5 :16 PM CDT COVID-19 01/04/2024 01/04/2024 01/24/2024 1:16 AM TUBE ROLLER documented as of this encounter Care Teams Veterinarian Relationship Specialty [place] [address] [facility] [address] [place] [phone] PCP - General Family Practice 05/16/24 documented as of this encounter
--- OUTSIDE RECORDS SUMMARY | 2024-12-16 17:13 | XMS_ITS | Encounter Summary ---
Author Organization [facility] Address 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 documented in this encounter Plan of Treatment Upcoming Encounters Date Type Department Care Team (Late st Contact Info) Description 02/05/2025 8:00 AM URINALYSIS TECHNICIAN Office Visit [facility] Bariatrics and General Surgery at the [facility] Medicine [address] [place] [address] Jenn Veras MD [address] [place] [address] 02/10/2025 1:00 PM URINALYSIS TECHNICIAN Video Visit [facility] Bariatrics and General Surgery at the [facility] Medicine [address] [place] [address] [place] [address] documented as of this encounter Visit Diagnoses Not on filedocumented in this encounter Care Teams Rn Lactation Relationship Specialty Start [place] [address] [facility] [address] [place] [address] PCP - General Family Practice 05/16/24 documented as of this encounter
[2024-12-16 17:56] VITALS: PULSE 68; RESP 18; TEMP 36.8; O2SAT 100
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
[2024-12-16 20:22] VITALS: BP 133/87; PULSE 62; RESP 14; O2SAT 100
[2024-12-16] MEDS: ACETAMINOPHEN 500 MG TABLET 1000 MG PO (20:39)
[2024-12-16 21:00] VITALS: BP 121/78; PULSE 70; RESP 16; TEMP 36.2; O2SAT 100
== END 2024-12-16 21:10 | disposition home or self-care (01) ==
LOC: ANHED 21:06
PROVIDERS: Emergency Provider Family Medicine
DX: S16.1XXA Strain of muscle, fascia and tendon at neck level, initial encounter (principal); J45.909 Unspecified asthma, uncomplicated; E78.5 Hyperlipidemia, unspecified; E11.9 Type 2 diabetes mellitus without complications; Z79.85 Long-term (current) use of injectable non-insulin antidiabetic drugs; V49.40XA Driver injured in collision with unspecified motor vehicles in traffic accident, initial encounter
CPT/HCPCS: 70450; 72125; 99284; A9270